=== PATIENT | male | born 1940 | race Caucasian/White ===

== ENCOUNTER 2018-10-21 11:38 | Observation (INO) | payer BC, MEDICARE ==
[2018-10-21] MEDS ORDERED: ASPIRIN 81 MG PO STA (12:09)
[2018-10-21 12:43] LABS: Basophils % (A) 0 %; Eosinophils # (A) 0.2 k/uL (0-0.7); Eosinophils % (A) 2 %; HCT 45.7 % (39.0-53.0); HGB 15.1 gm/dL (13.0-17.5); Lymphocytes # (A) 1.5 k/uL (1.0-4.8); Lymphocytes % (A) 19 %; MCH 28.6 pg (25.0-35.0); MCV 86.8 fL (80.0-100.0); Mean Platelet Volume 6.2; Monocytes # (A) 0.4 k/uL (0-1.0); Monocytes % (A) 5 %; Neutrophils # (A) 5.8 k/uL (1.3-7.7); Neutrophils % (A) 73 %; Platelet Count 308 k/uL (150-450); RBC 5.27 m/uL (4.30-5.90); WBC 7.9 k/uL (3.8-10.6)
[2018-10-21 12:55] LABS: Partial Thromboplastin Time 26.1 sec (22.0-30.0); Prothrombin Time 10.6 sec (9.0-12.0)
--- NOTE | 2018-10-21 12:55 | ED ---
General Adult HPI - General Source: patient, RN notes reviewed Mode of arrival: ambulatory Limitations: no limitations <Fernando Ramirez - Last Filed: 10/21/18 14:22> <Vlad Tran - Last Filed: 10/21/18 20:34> - General Chief complaint: Back Pain/Injury Stated complaint: Back pain Time Seen by Provider: 10/21/18 11:56 - History of Present Illness Initial comments: 78 year old male presents emergency Department with chief complaint of mid back pain. Patient states started a few weeks ago and has worsened. He states it's not exacerbated by anything at this time. Patient states the pain is primarily on the left side behind her shoulder blade. Patient denies trauma. Patient does have underlying hypertension has been started on medications. Patient is scheduled see a new internal medicine physician tomorrow Dr. Greco Patient states that the pain worsened today and cannot wait. He offers no complaints of shortness of breath. He has no history of hyperlipidemia, diabetes. Patient denies any current smoking. Patient denies any prior [place]. Patient denies any nausea, vomiting, diarrhea constipation. (Fernando Ramirez) - Related Data Home Medications Medication Instructions Recorded Confirmed Losartan Potassium 50 mg PO DAILY 10/21/18 10/21/18 Allergies Allergy/AdvReac Type Severity Reaction Status Date / Time No Known Allergies Allergy Verified 10/21/18 12:15 Review of Systems ROS Other: All systems not noted in ROS Statement are negative. <Fernando Ramirez - Last Filed: 10/21/18 14:22> ROS Other: All systems not noted in ROS Statement are negative. <Vlad Tran - Last Filed: 10/21/18 20:34> ROS Statement: Those systems with pertinent positive or pertinent negative responses have been documented in the HPI. Past Medical History Past Medical History: Hypertension History of Any Multi-Drug Resistant Organisms: None Reported Additional Past Surgical History / Comment(s): carpal tunnel surgery Past Psychological History: No Psychological Hx Reported Smoking Status: Never smoker Past Alcohol Use History: Occasional Past Drug Use History: None Reported <Fernando Ramirez - Last Filed: 10/21/18 14:22> - Past Family History Father Family Medical History: Cancer (Father at age of 81 from some sort of cancer.) Mother Family Medical History: Vascular Disorder (Mother at age of 89 from brain aneurysm.) Additional Family Medical History / Comment(s): brain aneurysm. Brother(s) Family Medical History: Cancer (Patient had 2 brothers one of them from lung cancer.) Sister(s) Family Medical History: No Reported History (Patient had 2 sisters one of them from alcoholism) Son(s) Family Medical History: No Reported History (Patient has 5 sons no major medical problems.) Daughter(s) Family Medical History: No Reported History (Patient has 3 daughters no major medical problems one of his daughter is a doctor in the [place].) <Vlad Tran N - Last Filed: 10/21/18 20:34> General Exam Limitations: no limitations General appearance: alert, in no apparent distress Head exam: Present: atraumatic, normocephalic, normal inspection Eye exam: Present: normal appearance, PERRL, EOMI. Absent: scleral icterus, conjunctival injection, periorbital swelling ENT exam: Present: normal exam, normal oropharynx, mucous membranes moist Neck exam: Present: normal inspection, full ROM. Absent: tenderness, meningismus, lymphadenopathy Respiratory exam: Present: normal lung sounds bilaterally. Absent: respiratory distress, wheezes, rales, rhonchi, stridor Cardiovascular Exam: Present: regular rate, normal rhythm, normal heart sounds. Absent: systolic murmur, diastolic murmur, rubs, gallop, clicks GI/Abdominal exam: Present: soft, normal bowel sounds. Absent: distended, tenderness, guarding, rebound, rigid Back exam: Present: normal inspection, full ROM. Absent: tenderness, paraspinal tenderness, vertebral tenderness Neurological exam: Present: alert, oriented X3, CN II-XII intact Skin exam: Present: warm, dry, intact, normal color. Absent: rash <Fernando Ramirez M - Last Filed: 10/21/18 14:22> Vital Signs 10/21/18 10/21/18 11:45 14:48 Temperature 98.3 F 98.7 F Pulse Rate 80 63 Respiratory 18 18 Rate Blood Pressure 167/80 149/90 O2 Sat by Pulse 97 99 Oximetry EKG Findings - EKG Comments: EKG Findings:: EKG performed at 13:30 sinus bradycardia with left axis deviation rate of 59 HI 160 QRS 98 QT/QTC 402/397 <Fernando Ramirez - Last Filed: 10/21/18 14:22> Medical Decision Making - Lab Data Result diagrams: 10/21/18 12:28 10/21/18 12:28 <Fernando Ramirez - Last Filed: 10/21/18 14:22> - Lab Data Result diagrams: 10/21/18 12:28 10/21/18 12:28 <Vlad Tran - Last Filed: 10/21/18 20:34> - Medical Decision Making 78-year-old male presented from for left-sided back, scapular pain is slightly worse with exertion. Patiently admitted for anginal equivalent. Patient had negative workup including PE study of the chest chest x-ray unremarkable. Patient will be admitted with cardiology consult. (Fernando Ramirez) 78-year-old male with atraumatic left back pain. Patient is well-appearing with stable vitals. Pain seems to be worsened with ambulation and activity. Workup in the emergency Department is negative. Patient's history is concerning for anginal equivalent. Will be admitted for serial cardiac enzymes , telemetry, cardiac consultation, and echo. Case discussed with admitting physician. (Vlad Tran) - Lab Data Lab Results 10/21/18 10/21/18 10/21/18 Range/Units 12:28 12:28 12:28 WBC 7.9 (3.8-10.6) k/uL RBC 5.27 (4.30-5.90) m/uL Hgb 15.1 (13.0-17.5) gm/dL Hct 45.7 (39.0-53.0) % MCV 86.8 (80.0-100.0) fL MCH 28.6 (25.0-35.0) pg MCHC 33.0 (31.0-37.0) g/dL RDW 14.0 (11.5-15.5) % Plt Count 308 (150-450) k/uL Neutrophils % 73 % Lymphocytes % 19 % Monocytes % 5 % Eosinophils % 2 % Basophils % 0 % Neutrophils # 5.8 (1.3-7.7) k/uL Lymphocytes # 1.5 (1.0-4.8) k/uL Monocytes # 0.4 (0-1.0) k/uL Eosinophils # 0.2 (0-0.7) k/uL Basophils # 0.0 (0-0.2) k/uL PT (9.0-12.0) sec INR (<1.2) APTT (22.0-30.0) sec D-Dimer (<0.60) mg/L FEU Sodium 142 (137-145) mmol/L Potassium 4.6 (3.5-5.1) mmol/L Chloride 107 (98-107) mmol/L Carbon Dioxide 28 (22-30) mmol/L Anion Gap 7 mmol/L BUN 25 H (9-20) mg/dL Creatinine 0.81 (0.66-1.25) mg/dL Est GFR (CKD-EPI)AfAm >90 (>60 ml/min/1.73 sqM) Est GFR (CKD-EPI)NonAf 86 (>60 ml/min/1.73 sqM) Glucose 94 (74-99) mg/dL Calcium 9.6 (8.4-10.2) mg/dL Magnesium 1.9 (1.6-2.3) mg/dL Total Bilirubin 0.8 (0.2-1.3) mg/dL AST 29 (17-59) U/L ALT 32 (21-72) U/L Alkaline Phosphatase 50 (38-126) U/L Total Creatine Kinase 56 (55-170) U/L CK-MB (CK-2) 0.9 (0.0-2.4) ng/mL CK-MB (CK-2) Rel Index 1.6 Troponin I <0.012 (0.000-0.034) ng/mL NT-Pro-B Natriuret Pep pg/mL Total Protein 7.3 (6.3-8.2) g/dL Albumin 4.2 (3.5-5.0) g/dL Lipase 343 H (23-300) U/L 10/21/18 10/21/18 Range/Units 12:28 12:28 WBC (3.8-10.6) k/uL RBC (4.30-5.90) m/uL Hgb (13.0-17.5) gm/dL Hct (39.0-53.0) % MCV (80.0-100.0) fL MCH (25.0-35.0) pg MCHC (31.0-37.0) g/dL RDW (11.5-15.5) % Plt Count (150-450) k/uL Neutrophils % % Lymphocytes % % Monocytes % % Eosinophils % % Basophils % % Neutrophils # (1.3-7.7) k/uL Lymphocytes # (1.0-4.8) k/uL Monocytes # (0-1.0) k/uL Eosinophils # (0-0.7) k/uL Basophils # (0-0.2) k/uL PT 10.6 (9.0-12.0) sec INR 1.0 (<1.2) APTT 26.1 (22.0-30.0) sec D-Dimer 1.44 H (<0.60) mg/L FEU Sodium (137-145) mmol/L Potassium (3.5-5.1) mmol/L Chloride (98-107) mmol/L Carbon Dioxide (22-30) mmol/L Anion Gap mmol/L BUN (9-20) mg/dL Creatinine (0.66-1.25) mg/dL Est GFR (CKD-EPI)AfAm (>60 ml/min/1.73 sqM) Est GFR (CKD-EPI)NonAf (>60 ml/min/1.73 sqM) Glucose (74-99) mg/dL Calcium (8.4-10.2) mg/dL Magnesium (1.6-2.3) mg/dL Total Bilirubin (0.2-1.3) mg/dL AST (17-59) U/L ALT (21-72) U/L Alkaline Phosphatase (38-126) U/L Total Creatine Kinase (55-170) U/L CK-MB (CK-2) (0.0-2.4) ng/mL CK-MB (CK-2) Rel Index Troponin I (0.000-0.034) ng/mL NT-Pro-B Natriuret Pep 133 pg/mL Total Protein (6.3-8.2) g/dL Albumin (3.5-5.0) g/dL Lipase (23-300) U/L Disposition <Fernando Ramirez M - Last Filed: 10/21/18 14:22> <Vlad Tran - Last Filed: 10/21/18 20:34> Clinical Impression: Anginal equivalent Disposition: ADMITTED IP TO THIS [facility] Condition: Stable
[2018-10-21 12:58] LABS: ALT 32 U/L (21-72); AST 29 U/L (17-59); Albumin 4.2 g/dL (3.5-5.0); Alkaline Phosphatase 50 U/L (38-126); Anion Gap 7 mmol/L; Blood Urea Nitrogen 25 mg/dL (9-20); Calcium 9.6 mg/dL (8.4-10.2); Carbon Dioxide 28 mmol/L (22-30); Chloride 107 mmol/L (98-107); Glucose 94 mg/dL (74-99); Lipase 343 U/L (23-300); Magnesium 1.9 mg/dL (1.6-2.3); Potassium 4.6 mmol/L (3.5-5.1); Sodium 142 mmol/L (137-145); Total Bilirubin 0.8 mg/dL (0.2-1.3); Total Protein 7.3 g/dL (6.3-8.2)
[2018-10-21 12:59] LABS: D-Dimer 1.44 mg/L FEU (<0.60)
--- NOTE | 2018-10-21 13:03 | XR ---
EXAMINATION TYPE: XR chest 2V DATE OF EXAM: 10/21/2018 COMPARISON: NONE HISTORY: Shortness of breath TECHNIQUE: Frontal and lateral views of the chest are obtained. FINDINGS: Scattered senescent parenchymal changes noted. Hyperinflation compatible with COPD. No evidence for infiltrate. No evidence for atelectasis. Heart size is stable. Mediastinal structures are stable and grossly unremarkable. No evidence for hilar prominence. Degenerative changes dorsal spine. IMPRESSION: 1. No evidence for acute pulmonary disease.
[2018-10-21 13:06] LABS: Creatine Kinase 56 U/L (55-170)
[2018-10-21 13:20] LABS: Creatine Kinase MB 0.9 ng/mL (0.0-2.4); Troponin I <0.012 ng/mL (0.000-0.034)
--- NOTE | 2018-10-21 13:34 | CT ---
EXAMINATION TYPE: CT chest angio for PE DATE OF EXAM: 10/21/2018 COMPARISON: None HISTORY: Back pain and elevated d-dimer CT DLP: 275.7 mGycm CONTRAST: CT chest with contrast and 3D reconstruction with MIP imaging is performed with IV Contrast, patient injected with 100 mL of Isovue 370. Contrast-enhanced CT of the chest was performed through the course of the pulmonary arteries with ree g and mediastinal window settings submitted. 3D reconstruction with MIP imaging was also performed. PULMONARY ARTERIES: The pulmonary arteries and their major tributaries are patent. I do not see soni dence for sizable filling defect to suggest pulmonary embolic process. LUNGS: The lungs are clear and free of infiltrate. No evidence for atelectasis. Scattered emphysemato us changes noted. No pulmonary nodule or mass is detected. No pleural effusion. MEDIASTINUM: Thoracic aorta is of normal caliber,however, evaluation is limited given timing of the contrast bolus. If there is concern for thoracic aortic pathology consider RAN. Correlate clinicall y . The heart is not enlarged. No evidence for mediastinal mass. No mediastinal lymph nodes greater than 1cm. HILAR STRUCTURES: No evidence for mass. No hilar lymph nodes greater than 1 cm. UPPER ABDOMEN: No significant abnormality is seen. IMPRESSION: 1. No evidence for Pulmonary embolism at this time.
[2018-10-21] MEDS ORDERED: NITROGLYCERIN SL TABS 0.4 MG TAB SUBLINGUAL PRN (14:24)
[2018-10-21] MEDS ORDERED: PNEUMOCOCCAL VACC-PNEUMOVAX 23 25 MCG/0.5 ML VIAL IM ONE (15:05)
--- NOTE | 2018-10-21 16:45 | P.HPIM ---
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 Review of Systems Constitutional: Denies chills, Denies chronic headaches, Denies lethargy, Denies malaise, Denies weight gain Eyes: denies blurred vision Ears: deny: decreased hearing Ears, nose, mouth and throat: Denies dysphagia, Denies neck lump, Denies sore throat, Denies vertigo Cardiovascular: Denies chest pain, Denies decreased exercise tolerance, Denies dyspnea on exertion, Denies leg edema, Denies lightheadedness, Denies rapid heart beat, Denies shortness of breath, Denies syncope Respiratory: Denies congestion, Denies cough, Denies cough with sputum, Denies home oxygen, Denies sleep apnea, Denies snoring, Denies wheezing Gastrointestinal: Denies abdominal pain, Denies belching, Denies BRBPR, Denies heartburn, Denies loss of appetite, Denies melena, Denies nausea, Denies vomiting Genitourinary: Reports nocturia, Denies dysuria Musculoskeletal: Reports gait dysfunction, Reports myalgias Musculoskeletal: left: ankle pain, ankle stiffness, ankle swelling, absent: elbow pain, elbow stiffness, elbow swelling, foot pain, foot stiffness, foot swelling, hand pain, hand stiffness, hand swelling, hip pain, hip stiffness, hip swelling, knee pain, knee stiffness, knee swelling, shoulder pain, shoulder stiffness, shoulder swelling, wrist pain, wrist stiffness, wrist swelling Integumentary: Denies pruritus, Denies rash Neurological: Denies numbness, Denies weakness Psychiatric: Denies anxiety, Denies depression Endocrine: Denies fatigue, Denies weight change Past Medical History Past Medical History: Hyperlipidemia, Hypertension, Osteoarthritis (OA), Prostate Disorder History of Any Multi-Drug Resistant Organisms: None Reported Past Surgical History: Orthopedic Surgery Additional Past Surgical History / Comment(s): Left carpal tunnel surgery, left shoulder surgery, left ankle open reduction and internal fixation greater than 53 years ago. Colonoscopy about 5 years ago. Past Anesthesia/Blood Transfusion Reactions: No Reported Reaction Past Psychological History: No Psychological Hx Reported Smoking Status: Former smoker (She used to smoke about a pack every day he smoked for about 30 years quit 20 years ago he smoked between 22 and 52.) Past Alcohol Use History: Occasional Past Drug Use History: None Reported - Past Family History Father Family Medical History: Cancer (Father at age of 81 from some sort of cancer.) Mother Family Medical History: Vascular Disorder (Mother at age of 89 from brain aneurysm.) Additional Family Medical History / Comment(s): brain aneurysm. Brother(s) Family Medical History: Cancer (Patient had 2 brothers one of them from lung cancer.) Sister(s) Family Medical History: No Reported History (Patient had 2 sisters one of them from alcoholism) Son(s) Family Medical History: No Reported History (Patient has 5 sons no major medical problems.) Daughter(s) Family Medical History: No Reported History (Patient has 3 daughters no major medical problems one of his daughter is a doctor in the [email or web address].) Medications and Allergies Home Medications Medication Instructions Recorded Confirmed Type Losartan Potassium 50 mg PO DAILY 10/21/18 10/21/18 History Allergies Allergy/AdvReac Type Severity Reaction Status Date / Time No Known Allergies Allergy Verified 10/21/18 12:15 Physical Exam Vitals: Vital Signs Temp Pulse Pulse Resp BP BP Pulse Ox 10/21/18 15:01 98.2 F 60 18 183/89 98 10/21/18 14:48 98.7 F 63 18 149/90 99 10/21/18 11:45 98.3 F 80 18 167/80 97 Intake and Output 10/21/18 10/21/18 10/21/18 06:59 14:59 22:59 Other: Weight 76.204 kg - Constitutional General appearance: no acute distress - EENT Eyes: anicteric sclerae, EOMI, PERRLA, no ptosis, no scleral icterus, normal appearance ENT: hearing grossly normal, NA/AT, normal oropharynx, no thrush Ears: bilateral: normal - Neck Neck: no lymphadenopathy, normal ROM, no rigidity, no stridor Carotids: bilateral: upstroke normal - Respiratory Respiratory: bilateral: diminished, negative: dullness, rales, rhonchi, wheezing , prolonged expiration - Cardiovascular Heart sounds: normal: S1, S2 Abnormal Heart Sounds: systolic murmur, no rub, no S3 Gallop, no S4 Gallop, no click - Gastrointestinal General gastrointestinal: normal bowel sounds, soft, no splenomegaly, no tenderness, no umbilical hernia, no ventral hernia - Integumentary Integumentary: normal, normal turgor - Neurologic Neurologic: CNII-XII intact - Musculoskeletal Musculoskeletal: no gait normal, strength equal bilaterally - Psychiatric Psychiatric: A&O x's 3, appropriate affect, intact judgment & insight Results CBC & Chem 7: 10/21/18 12:28 10/21/18 12:28 Labs: Abnormal Lab Results - Last 24 Hours (Table) 10/21/18 10/21/18 Range/Units 12:28 12:28 D-Dimer 1.44 H (<0.60) mg/L FEU BUN 25 H (9-20) mg/dL Lipase 343 H (23-300) U/L Thrombosis Risk Factor Assmnt - DVT/VTE Prophylaxis DVT/VTE Prophylaxis: Pharmacologic Prophylaxis ordered, Mechanical Prophylaxis ordered - Choose All That Apply Each Risk Factor Represents 3 Points: Age 75 years or older Thrombosis Risk Factor Assessment Total Risk Factor Score: 3 Thrombosis Risk Factor Assessment Level: Moderate Risk Assessment and Plan Assessment: Assessment and plan: 1. Left-sided back pain likely musculoskeletal with a few risk factors for CAD including his age and gender hypertension and hyperlipidemia, patient will be admitted as an observation, echocardiogram will be done, continue aspirin 325 mg once every day, continue losartan 50 mg orally once every day, we will arrange for the patient to go for Lexiscan stress test tomorrow morning as the patient is not able to run a treadmill due to his left ORIF of the left ankle. 2. Hypertension and hypertensive cardio vascular disease. Continue patient on losartan 50 mg orally once every day. 3. Hyperlipidemia. Check lipid profile. 4. Osteoarthritis. Stable. 5. Possible COPD due to remote history of smoking. Stable. 6. Enlarged prostate. Stable. 7. DVT prophylaxis. Heparin 5000 units subcutaneously every 12 hours . 8. GI prophylaxis. Pepcid 20 mg orally once every day. 9. Full code. 10. Observation.
[2018-10-21 19:16] LABS: Creatine Kinase 59 U/L (55-170)
[2018-10-21 19:28] LABS: Troponin I <0.012 ng/mL (0.000-0.034)
[2018-10-21] MEDS: HEPARIN SODIUM,PORCINE 5,000 UNIT/ML 1 ML VIAL SQ SCH (23:24)
[2018-10-22 01:11] LABS: Creatine Kinase 53 U/L (55-170)
[2018-10-22 01:25] LABS: Creatine Kinase MB 0.8 ng/mL (0.0-2.4); Troponin I <0.012 ng/mL (0.000-0.034)
[2018-10-22 03:49] LABS: Cholesterol 188 mg/dL (<200); HDL Cholesterol 36 mg/dL (40-60); LDL Cholesterol,Calculated 130 mg/dL (0-99); Triglycerides 110 mg/dL (<150)
[2018-10-22 07:13] VITALS: RESP 18
[2018-10-22] MEDS ORDERED: LOSARTAN 50 MG TAB PO SCH (09:00)
[2018-10-22] MEDS ORDERED: ASPIRIN 325 MG TAB PO SCH (09:00)
[2018-10-22] MEDS: HEPARIN SODIUM,PORCINE 5,000 UNIT/ML 1 ML VIAL SQ SCH (09:25)
[2018-10-22] MEDS ORDERED: amLODIPine 5 MG TAB PO SCH (09:45)
[2018-10-22] MEDS ORDERED: ATORVASTATIN 20 MG TAB PO SCH (09:45)
[2018-10-22] MEDS ORDERED: DOBUTamine DRIP for NUC MED 500 MG in DEXTROSE/WATER 1 250ML.BAG IV ONE (10:25)
[2018-10-22] MEDS ORDERED: BACLOFEN 10 MG TAB PO PRN (10:54)
--- NOTE | 2018-10-22 11:55 | ECHOF ---
Referral Reason:chest pain MEASUREMENTS -------- HEIGHT: 188.0 cm WEIGHT: 76.2 kg BP: 128/68 RVIDd: 3.0 cm (< 3.3) IVSd: 1.0 cm (0.6 - 1.1) LVIDd: 4.3 cm (3.9 - 5.3) LVPWd: 1.4 cm (0.6 - 1.1) IVSs: 1.2 cm LVIDs: 3.1 cm LVPWs: 1.6 cm LA Diam: 3.8 cm (2.7 - 3.8) LAESV Index (A-L): 35.60 ml/m Ao Diam: 2.9 cm (2.0 - 3.7) AV Cusp: 1.9 cm (1.5 - 2.6) LA Diam: 3.0 cm (2.7 - 3.8) MV EXCURSION: 16.659 mm (> 18.000) MV EF SLOPE: 86 mm/s (70 - 150) EPSS: 0.2 cm MV E Christiano: 0.85 m/s MV DecT: 161 ms MV A Christiano: 0.83 m/s MV E/A Ratio: 1.03 RAP: 5.00 mmHg RVSP: 17.33 mmHg FINDINGS -------- Sinus rhythm. This was a technically good study. LV size, wall thickness and systolic function are normal, with an EF greater than 55%. The left jerry tricular size is normal. The right ventricle is normal in size. The left atrial size is normal. The right atrial size is normal. There is mild aortic valve sclerosis. There is no evidence of aortic regurgitation. Mild mitral annular calcification present. Mild mitral regurgitation is present. Mild tricuspid regurgitation present. There is no evidence of pulmonary hypertension. The right v entricular systolic pressure, as measured by Doppler, is 17.33mmHg. There is no pulmonic regurgitation present. The aortic root size is normal. There is no pericardial effusion. CONCLUSIONS -------- 1. LV size, wall thickness and systolic function are normal, with an EF greater than 55%. 2. The left ventricular size is normal. 3. The right ventricle is normal in size. 4. The left atrial size is normal. 5. The right atrial size is normal. 6. There is mild aortic valve sclerosis. 7. Mild mitral annular calcification present. 8. Mild mitral regurgitation is present. 9. Mild tricuspid regurgitation present. 10. There is no evidence of pulmonary hypertension. 11. The right ventricular systolic pressure, as measured by Doppler, is 17.33mmHg. 12. There is no pulmonic regurgitation present. 13. The aortic root size is normal. 14. There is no pericardial effusion. VEST FINISHER: Raya Bui RDCS
--- NOTE | 2018-10-22 12:04 | P.CRDCN ---
History of Present Illness History of present illness: This is a pleasant 78-year-old male past medical history significant for hypertension which was newly diagnosed approximately one month ago and he was started on losartan 50 mg daily. He denies history of coronary artery disease, dyslipidemi or diabetes mellitus. 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 We have been asked to see him in consultation for chest pain. He states he has been feeling a nagging dull pain in the left thoracic/flank region intermittently for the last week or so. This pain is not associated with shortness of breath, dizziness, nausea, vomiting, palpitations or diaphoresis. The pain is not reproducible on palpation and is not exacerbated by cough or deep breathing. He denies radiation to the chest, arms, neck or jaw. EKG reveals sinus mechanism with no acute ST or T-wave abnormalities with left axis deviation. Chest x-ray is negative for acute cardiopulmonary process. Evidence of hyperinflation suggestive of COPD. CTA chest negative for pulmonary embolism, thoracic aorta is normal and no evidence of mediastinal thickening. Laboratory data reviewed, WBC 7.9, hemoglobin 15.1, platelets 308, d-dimer 1.44 , sodium 142, potassium 4.6, magnesium 1.9, creatinine 0.81, cardiac enzymes negative 3, LDL 130, HDL 36 and lipase 343. Current cardiac medications include losartan 50 mg daily. At the time of my exam: CONSTITUTIONAL: Denies fever. Denies chills. EYES: Denies blurred vision. Denies vision changes. Denies eye pain. EARS, NOSE, MOUTH & THROAT: Denies headache. Denies sore throat. Denies ear pain. CARDIOVASCULAR: Denies chest pain. Denies shortness of breath. Denies orthopnea. Denies PND. Denies palpitations. RESPIRATORY: Denies cough. GASTROINTESTINAL: Denies abdominal pain. Denies diarrhea. Denies constipation. Denies nausea. Denies vomiting. MUSCULOSKELETAL: Denies myalgias. INTEGUMENTARY: Denies pruitis. Denies rash. NEUROLOGIC: Denies numbness. Denies tingling. Denies weakness. PSYCHIATRIC: Denies anxiety. Denies depression. ENDOCRINE: Denies fatigue. Denies weight change. Denies polydipsia. Denies polyurina. GENITOURINARY: Denies burning, hematuria or urgency with micturation. HEMATOLOGIC: Denies history of anemia. Denies bleeding. Blood pressure 153/68 heart rate 51 afebrile maintaining oxygen saturation on room air GENERAL: This is a 78-year-old male in no apparent distress at the time of my examination. HEENT: Head is atraumatic, normocephalic. Pupils are equal, round. Sclerae anicteric. Conjunctivae are clear. Mucous membranes of the mouth are moist. Neck is supple. There is no jugular venous distention. No carotid bruit is heard. LUNGS: Clear to auscultation no wheezes, rales or rhonchi. No chest wall tenderness is noted on palpation or with deep breathing. HEART: Regular rate and rhythm with systolic ejection murmur at the left sternal border, no rubs or gallops. S1 and S2 heard. ABDOMEN: Soft, nontender. Bowel sounds are heard. No organomegaly noted. EXTREMITIES: No evidence of peripheral edema and no calf tenderness noted. VASCULAR: Radial and dorsalis pedis pulses palpated, no evidence of clubbing. NEUROLOGIC: Patient is awake, alert and oriented x3. ASSESSMENT Thoracic pain on the left, atypical for angina Hypertension Dyslipidemia PLAN An acute coronary event has been ruled out with no EKG evidence of acute ischemia and negative cardiac enzymes. Perform dobutamine stress echocardiogram to assess for stress induced ischemia. Add on small dose of amlodipine for better blood pressure control. Recommend atorvastatin 40 mg daily for lowering of LDL cholesterol. If stress test is normal he is stable for discharge home, follow up in the office with Dr. Plummer in 2 weeks. Thank you kindly for this consultation. Nurse Practitioner note has been reviewed, I agree with a documented findings and plan of care. Patient was seen and examined. Past Medical History Past Medical History: Hyperlipidemia, Hypertension, Osteoarthritis (OA), Prostate Disorder History of Any Multi-Drug Resistant Organisms: None Reported Past Surgical History: Orthopedic Surgery Additional Past Surgical History / Comment(s): Left carpal tunnel surgery, left shoulder surgery, left ankle open reduction and internal fixation greater than 53 years ago. Colonoscopy about 5 years ago. Past Anesthesia/Blood Transfusion Reactions: No Reported Reaction Past Psychological History: No Psychological Hx Reported Smoking Status: Former smoker (She used to smoke about a pack every day he smoked for about 30 years quit 20 years ago he smoked between 22 and 52.) Past Alcohol Use History: Occasional Past Drug Use History: None Reported - Past Family History Father Family Medical History: Cancer (Father at age of 81 from some sort of cancer.) Mother Family Medical History: Vascular Disorder (Mother at age of 89 from brain aneurysm.) Additional Family Medical History / Comment(s): brain aneurysm. Brother(s) Family Medical History: Cancer (Patient had 2 brothers one of them from lung cancer.) Sister(s) Family Medical History: No Reported History (Patient had 2 sisters one of them from alcoholism) Son(s) Family Medical History: No Reported History (Patient has 5 sons no major medical problems.) Daughter(s) Family Medical History: No Reported History (Patient has 3 daughters no major medical problems one of his daughter is a doctor in the [place].) Medications and Allergies Home Medications Medication Instructions Recorded Confirmed Type Losartan Potassium 50 mg PO DAILY 10/21/18 10/21/18 History Allergies Allergy/AdvReac Type Severity Reaction Status Date / Time No Known Allergies Allergy Verified 10/21/18 12:15 Physical Exam Vitals: Vital Signs Temp Pulse Pulse Resp BP BP BP 10/22/18 07:12 98.3 F 51 L 18 153/68 10/22/18 04:00 97.5 F L 55 L 16 128/68 10/22/18 00:00 16 10/21/18 23:25 98.2 F 57 L 16 137/72 10/21/18 20:00 18 10/21/18 19:20 97.7 F 64 18 177/80 10/21/18 16:00 60 18 10/21/18 15:01 98.2 F 60 18 183/89 10/21/18 14:48 98.7 F 63 18 149/90 10/21/18 11:45 98.3 F 80 18 167/80 Pulse Ox 10/22/18 07:12 98 10/22/18 04:00 97 10/22/18 00:00 10/21/18 23:25 98 10/21/18 20:00 10/21/18 19:20 98 10/21/18 16:00 10/21/18 15:01 98 10/21/18 14:48 99 10/21/18 11:45 97 Intake and Output 10/21/18 10/22/18 10/22/18 22:59 06:59 14:59 Intake Total 240 Balance 240 Intake: Oral 240 Other: Voiding Method Toilet Toilet # Voids 1 1 Results 10/21/18 12:28 10/21/18 12:28 Cardiac Enzymes 10/21/18 10/21/18 10/21/18 Range/Units 12:28 12:28 18:40 AST 29 (17-59) U/L CK-MB (CK-2) 0.9 1.0 (0.0-2.4) ng/mL Troponin I <0.012 <0.012 (0.000-0.034) ng/mL 10/22/18 Range/Units 00:32 AST (17-59) U/L CK-MB (CK-2) 0.8 (0.0-2.4) ng/mL Troponin I <0.012 (0.000-0.034) ng/mL Coagulation 10/21/18 Range/Units 12:28 PT 10.6 (9.0-12.0) sec APTT 26.1 (22.0-30.0) sec Lipids 10/21/18 Range/Units 12:28 Triglycerides 110 (<150) mg/dL Cholesterol 188 (<200) mg/dL HDL Cholesterol 36 L (40-60) mg/dL CBC 10/21/18 Range/Units 12:28 WBC 7.9 (3.8-10.6) k/uL RBC 5.27 (4.30-5.90) m/uL Hgb 15.1 (13.0-17.5) gm/dL Hct 45.7 (39.0-53.0) % Plt Count 308 (150-450) k/uL Comprehensive Metabolic Panel 10/21/18 Range/Units 12:28 Sodium 142 (137-145) mmol/L Potassium 4.6 (3.5-5.1) mmol/L Chloride 107 (98-107) mmol/L Carbon Dioxide 28 (22-30) mmol/L BUN 25 H (9-20) mg/dL Creatinine 0.81 (0.66-1.25) mg/dL Glucose 94 (74-99) mg/dL Calcium 9.6 (8.4-10.2) mg/dL AST 29 (17-59) U/L ALT 32 (21-72) U/L Alkaline Phosphatase 50 (38-126) U/L Total Protein 7.3 (6.3-8.2) g/dL Albumin 4.2 (3.5-5.0) g/dL Current Medications Generic Name Dose Route Start Last Admin Trade Name Freq PRN Reason Stop Dose Admin Aspirin 325 mg 10/22/18 09:00 Aspirin PO DAILY [facility] Heparin Sodium (Porcine) 5,000 unit 10/22/18 00:00 10/21/18 23:24 Heparin SQ 5,000 unit Q8HR AVERY Administration Losartan Potassium 50 mg 10/22/18 09:00 Cozaar PO DAILY [facility] Nitroglycerin 0.4 mg 10/21/18 14:24 Nitrostat SUBLINGUAL Q5M PRN Chest Pain Intake and Output 10/21/18 10/22/18 10/22/18 22:59 06:59 14:59 Intake Total 240 Balance 240 Intake: Oral 240 Other: Voiding Method Toilet Toilet # Voids 1 1 10/21/18 12:28 10/21/18 12:28
[2018-10-22 12:05] VITALS: BP 161/82; PULSE 66; TEMP 97.4
--- NOTE | 2018-10-22 12:17 | P.DS ---
Providers Date of admission: 10/21/18 14:10 Expected date of discharge: 10/22/18 Attending physician: Abdulkadir Marino Consults: 10/21/18 14:24 Consult Physician Urgent Consulting Provider: Greyson Hong Consult Reason/Comments: chest pain Do you want consulting provider notified?: Yes Primary care physician: Chichi Mcdermott MD Hospital Course: This is a 78-year-old male one of Dr. 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 10/22: Repeat troponins have been negative on 3 draws. Cholesterol 188, LDL 130, HDL 36. Patient has been afebrile, pulse ox 98% on room air, heart rate running in the 50s, blood pressure 153/68. Echocardiogram reveals EF greater than 55%, mild aortic valve sclerosis, mild mitral regurgitation, mild tricuspid regurgitation, no pulmonary hypertension. The patient has been seen by cardiology and dobutamine stress test was ordered which came back negative and patient was cleared for discharge from cardiology with plan for follow-up with Dr. VC Plummer. Patient has been started on baclofen for pain and will be provided a prescription. Patient was started on amlodipine and Lipitor by cardiology which will also be provided in new prescriptions. Discharge diagnoses: 1. Left-sided back pain likely musculoskeletal 2. Hypertension and hypertensive cardi vascular disease. 3. Hyperlipidemia. 4. Osteoarthritis. Stable. 5. Possible COPD due to remote history of smoking. Stable. 6. Enlarged prostate. Stable. Discharge plan: Return home Impression and plan of care have been directed as dictated by the signing physician. Jordyn Pak nurse practitioner acting as scribe for signing physician. Patient Condition at Discharge: Good Plan - Discharge Summary Discharge Rx Participant: No New Discharge Prescriptions: New amLODIPine [Norvasc] 5 mg PO DAILY #30 tab Atorvastatin [Lipitor] 20 mg PO DAILY #30 tab Baclofen [Lioresal] 10 mg PO BID PRN #60 tab PRN Reason: Muscle Spasm Continue Losartan Potassium 50 mg PO DAILY Discharge Medication List Losartan Potassium 50 mg PO DAILY 10/21/18 [History] Atorvastatin [Lipitor] 20 mg PO DAILY #30 tab 10/22/18 [Rx] Baclofen [Lioresal] 10 mg PO BID PRN #60 tab 10/22/18 [Rx] amLODIPine [Norvasc] 5 mg PO DAILY #30 tab 10/22/18 [Rx] Follow up Appointment(s)/Referral(s): Lupe Plummer MD [STAFF PHYSICIAN] - 2 Weeks Chichi Mcdermott MD [Primary Care Provider] - 1 Week Discharge Disposition: HOME SELF-CARE
[2018-10-22] MEDS ORDERED: PNEUMOCOCCAL VACC-PNEUMOVAX 23 25 MCG/0.5 ML VIAL IM ONE (12:38)
--- NOTE | 2018-10-22 12:39 | ECHOS ---
STRESS ECHOCARDIOGRAM INDICATIONS: Chest pain. BASELINE HEART RATE: 58 BASELINE BLOOD PRESSURE: 139/56 MAXIMUM HEART RATE: 130 MAXIMUM BLOOD PRESSURE: 185/52 85% MPHR: 122 100% MPHR: 144 MAXIMUM STAGE REACHED: 3 TOTAL EXERCISE TIME: 7:00 CLINICAL INFORMATION: A dobutamine stress echocardiographic study was performed. Peak heart rate of 130 was achieved. Maximum blood pressure of 185/52 mmHg is noted. The resting EKG shows normal sinus rhythm with normal NJ interval and QRS duration and normal ST-T waves. No ST-segment depression suggestive of ischemia is noted. The baseline echocardiographic images reveals normal left ventricular chamber size with normal left ventricular systolic function. At the peak dose of dobutamine infusion, normal increase in the wall thickness and contractility is noted. FINAL IMPRESSION: This dobutamine stress echocardiographic study is negative for stress-induced ischemia. EKG portion of the stress test is not suggestive of ischemia. Patient did not complain of any chest pain during the test. MMODL / IJN: [id number] /
== END 2018-10-22 14:00 | disposition home or self-care (01) ==
LOC: EC 11:38 → 1SOBS 14:10
PROVIDERS: ADMIT Internal Medicine; ATTEND Internal Medicine
DX: M54.89 Other dorsalgia (principal); I11.9 Hypertensive heart disease without heart failure; E78.5 Hyperlipidemia, unspecified; M19.90 Unspecified osteoarthritis, unspecified site; N40.0 Benign prostatic hyperplasia without lower urinary tract symptoms; Z87.891 Personal history of nicotine dependence; Z79.899 Other long term (current) drug therapy; Z80.9 Family history of malignant neoplasm, unspecified; Z82.49 Family history of ischemic heart disease and other diseases of the circulatory system; Z80.1 Family history of malignant neoplasm of trachea, bronchus and lung
CPT/HCPCS: 93005 ×2; 96372 ×2; 99285; 36415; 93306; 93351; 85379; 83880; 80061; 80053; 82550 ×2; 82553 ×2; 83690 ×2; 83735; 84484 ×2; 85025; 85610; 85730; 71046; 71275; 90732; G0378; G0009; J1250; J1644 ×2; Q9967

== ENCOUNTER 2019-08-17 11:29 | Emergency (ER) | payer MEDICARE ==
[2019-08-17 11:44] VITALS: BP 172/80; PULSE 61; RESP 18; TEMP 98.1
--- NOTE | 2019-08-17 11:59 | ED ---
GI Bleed HPI - General Source: patient, RN notes reviewed Mode of arrival: ambulatory Limitations: no limitations <Fernando Ramirez - Last Filed: 08/17/19 12:15> <Vlad Hall - Last Filed: 08/17/19 13:29> - General Chief complaint: GI Bleed Stated complaint: RECTAL BLEEDING Time Seen by Provider: 08/17/19 11:45 - History of Present Illness Initial comments: 79-year-old male presents emergency Department with chief complaint of rectal bleeding. Patient states that he had a bowel movement today. Patient states that shortly after he had a bowel movement in felt some wetness and denies that was blood. He has no associated pain. He does have a history of hemorrhoids. Patient states he suffered picture to his daughter who told him it was hemorrhoid. Patient presented with no active complaints has been on a blood thinners. No nausea vomiting diarrhea constipation. (Fernando Ramirez) - Related Data Home Medications Medication Instructions Recorded Confirmed Losartan Potassium 50 mg PO DAILY 10/21/18 10/21/18 Previous Rx's Medication Instructions Recorded Atorvastatin [Lipitor] 20 mg PO DAILY #30 tab 10/22/18 Baclofen [Lioresal] 10 mg PO BID PRN #60 tab 10/22/18 amLODIPine [Norvasc] 5 mg PO DAILY #30 tab 10/22/18 Hydrocortisone Pr Cream 1 applic RECTAL TID #30 gram 08/17/19 [Proctosol-Hc 2.5%] Allergies Allergy/AdvReac Type Severity Reaction Status Date / Time No Known Allergies Allergy Verified 08/17/19 11:37 Review of Systems ROS Other: All systems not noted in ROS Statement are negative. <Fernando Ramirez - Last Filed: 08/17/19 12:15> ROS Other: All systems not noted in ROS Statement are negative. <Vlad Hall - Last Filed: 08/17/19 13:29> ROS Statement: Those systems with pertinent positive or pertinent negative responses have been documented in the HPI. Past Medical History Past Medical History: Hyperlipidemia, Hypertension, Osteoarthritis (OA), Prostate Disorder History of Any Multi-Drug Resistant Organisms: None Reported Past Surgical History: Orthopedic Surgery Additional Past Surgical History / Comment(s): Left carpal tunnel surgery, left shoulder surgery, left ankle open reduction and internal fixation greater than 53 years ago. Colonoscopy about 5 years ago. Past Anesthesia/Blood Transfusion Reactions: No Reported Reaction Past Psychological History: No Psychological Hx Reported Smoking Status: Former smoker Past Alcohol Use History: Occasional Past Drug Use History: None Reported - Past Family History Father Family Medical History: Cancer (Father at age of 81 from some sort of cancer.) Mother Family Medical History: Vascular Disorder (Mother at age of 89 from brain aneurysm.) Additional Family Medical History / Comment(s): brain aneurysm. Brother(s) Family Medical History: Cancer (Patient had 2 brothers one of them from lung cancer.) Sister(s) Family Medical History: No Reported History (Patient had 2 sisters one of them from alcoholism) Son(s) Family Medical History: No Reported History (Patient has 5 sons no major medical problems.) Daughter(s) Family Medical History: No Reported History (Patient has 3 daughters no major medical problems one of his daughter is a doctor in the [place].) <Fernando Ramirez - Last Filed: 08/17/19 12:15> General Exam Limitations: no limitations General appearance: alert, in no apparent distress Head exam: Present: atraumatic, normocephalic, normal inspection Eye exam: Present: normal appearance, PERRL, EOMI. Absent: scleral icterus, conjunctival injection, periorbital swelling Respiratory exam: Present: normal lung sounds bilaterally. Absent: respiratory distress, wheezes, rales, rhonchi, stridor Cardiovascular Exam: Present: regular rate, normal rhythm, normal heart sounds. Absent: systolic murmur, diastolic murmur, rubs, gallop, clicks GI/Abdominal exam: Present: soft, normal bowel sounds. Absent: distended, tenderness, guarding, rebound, rigid Rectal exam: Present: hemorrhoids (There is blood noted no active bleeding no). Absent: tenderness <Fernando Ramirez - Last Filed: 08/17/19 12:15> Course <Vlad Hall - Last Filed: 08/17/19 13:29> Vital Signs 08/17/19 11:41 Temperature 98.1 F Pulse Rate 61 Respiratory 18 Rate Blood Pressure 172/80 O2 Sat by Pulse 99 Oximetry - Reevaluation(s) Reevaluation #1: 08/17/19 13:28 PA supervision: I proceeded [id number] evaluation patient did discuss findings with him and his . Patient presented with complaints of some GI bleeding this well of bright red blood. He does have a hemorrhoid which was evaluated by my physician grants and contracts assistant. I did review the imaging that was provided by the patient's is consistent with a acute bleeding hemorrhoid with no active bleeding at this time. He will be treated appropriately I do agree with the assessment and plan. (Vlad Hall) Disposition Is patient prescribed a controlled substance at d/c from ED?: No Time of Disposition: 11:59 <Fernando Ramirez - Last Filed: 08/17/19 12:15> <Vlad Hall - Last Filed: 08/17/19 13:29> Clinical Impression: External thrombosed hemorrhoids, External hemorrhoid, bleeding Disposition: HOME SELF-CARE Condition: Stable Instructions (If sedation given, give patient instructions): Thrombosed Hemorrhoid (ED) Additional Instructions: Use [id number] Tucks pads. Please return to the Emergency Department if symptoms worsen or any other concerns. Prescriptions: Hydrocortisone Pr Cream [Proctosol-Hc 2.5%] 1 applic RECTAL TID #30 gram Referrals: Chichi Mcdermott MD [Primary Care Provider] - 1-2 days
== END 2019-08-17 12:14 | disposition home or self-care (01) ==
LOC: EC 11:29
DX: K64.5 Perianal venous thrombosis (principal); I10 Essential (primary) hypertension; Z87.891 Personal history of nicotine dependence; Z79.899 Other long term (current) drug therapy
CPT/HCPCS: 99283

== ENCOUNTER 2020-02-16 01:28 | Inpatient (IN) | payer MEDICARE ==
[2020-02-16] MEDS ORDERED: SODIUM CHLORIDE 0.9% 1,000 ML IV STA (01:38)
--- NOTE | 2020-02-16 01:39 | ED ---
Weakness HPI - General Stated complaint: poss CVA Time Seen by Provider: 02/16/20 01:29 Source: RN notes reviewed, old records reviewed Limitations: altered mental status - History of Present Illness Initial comments: This is a 79-year-old male DF for evaluation patient has history of high blood pressure. Patient is presenting Social coming in for mental status. Patient had an episode of screaming while sleeping the went to the patient was unresponsive EMS states patient was unresponsive when they arrived at his house. Patient has no recent trauma no fevers. MD Complaint: generalized weakness (Episode of unresponsiveness) -: minutes(s) Location: generalized (Unresponsiveness), other (Altered mental status) Severity: mild Severity scale (1-10): 3 Quality: other (complaints) Consistency: now resolved Improves with: none Worsens with: none Context: history of similar Associated Symptoms: confusion - Related Data Home Medications Medication Instructions Recorded Confirmed Mesalamine 4.8 gm PO DAILY 02/16/20 02/17/20 predniSONE See Taper PO DAILY 02/16/20 02/17/20 Previous Rx's Medication Instructions Recorded Aspirin 325 mg PO DAILY tab 02/18/20 Atorvastatin [Lipitor] 20 mg PO HS #30 tab 02/18/20 Hydrochlorothiazide 25 mg PO DAILY #0 02/18/20 Allergies Allergy/AdvReac Type Severity Reaction Status Date / Time No Known Allergies Allergy Verified 02/16/20 10:14 Review of Systems ROS Statement: Those systems with pertinent positive or pertinent negative responses have been documented in the HPI. ROS Other: All systems not noted in ROS Statement are negative. Past Medical History Past Medical History: Hyperlipidemia, Hypertension, Osteoarthritis (OA), Prostate Disorder History of Any Multi-Drug Resistant Organisms: None Reported Past Surgical History: Orthopedic Surgery Additional Past Surgical History / Comment(s): Left carpal tunnel surgery, left shoulder surgery, left ankle open reduction and internal fixation greater than 53 years ago. Colonoscopy about 5 years ago. Past Anesthesia/Blood Transfusion Reactions: No Reported Reaction Past Psychological History: No Psychological Hx Reported Smoking Status: Former smoker Past Alcohol Use History: Occasional Past Drug Use History: None Reported - Past Family History Father Family Medical History: Cancer (Father at age of 81 from some sort of cancer.) Mother Family Medical History: Vascular Disorder (Mother at age of 89 from brain aneurysm.) Additional Family Medical History / Comment(s): brain aneurysm. Brother(s) Family Medical History: Cancer (Patient had 2 brothers one of them from lung cancer.) Sister(s) Family Medical History: No Reported History (Patient had 2 sisters one of them from alcoholism) Son(s) Family Medical History: No Reported History (Patient has 5 sons no major medical problems.) Daughter(s) Family Medical History: No Reported History (Patient has 3 daughters no major medical problems one of his daughter is a doctor in the [place].) General Exam - General Exam Comments Initial Comments: NIH of 0 General appearance: alert, in no apparent distress Head exam: Present: atraumatic, normocephalic, normal inspection Eye exam: Present: normal appearance, PERRL, EOMI. Absent: scleral icterus, conjunctival injection, periorbital swelling ENT exam: Present: normal exam, mucous membranes moist Neck exam: Present: normal inspection. Absent: tenderness, meningismus, lymphadenopathy Respiratory exam: Present: normal lung sounds bilaterally. Absent: respiratory distress, wheezes, rales, rhonchi, stridor Cardiovascular Exam: Present: regular rate, normal rhythm, normal heart sounds. Absent: systolic murmur, diastolic murmur, rubs, gallop, clicks GI/Abdominal exam: Present: soft, normal bowel sounds. Absent: distended, tenderness, guarding, rebound, rigid Extremities exam: Present: normal inspection, full ROM, normal capillary refill. Absent: tenderness, pedal edema, joint swelling, calf tenderness Back exam: Present: normal inspection Neurological exam: Present: alert, oriented X3, CN II-XII intact Psychiatric exam: Present: normal affect, normal mood Skin exam: Present: warm, dry, intact, normal color. Absent: rash Course Vital Signs 02/16/20 02/16/20 02/16/20 01:34 02:17 03:00 Temperature 98.0 F Pulse Rate 81 75 67 Pulse Rate [ Left] Respiratory 16 16 16 Rate Blood Pressure 186/95 155/84 162/80 Blood Pressure [Left Arm] O2 Sat by Pulse 96 97 97 Oximetry 02/16/20 02/16/20 03:37 04:00 Temperature 98.1 F 98.1 F Pulse Rate 60 Pulse Rate [ 70 Left] Respiratory 16 16 Rate Blood Pressure 137/82 Blood Pressure 155/60 [Left Arm] O2 Sat by Pulse 96 97 Oximetry - Reevaluation(s) Reevaluation #1: Medical record is reviewed Patient has resolution of symptoms does not feel comfortable with discharge - Consultations Consultation #1: spoke w Dr Mcmahon and ok for admission EKG Findings - EKG Comments: EKG Findings:: EKG is sinus rhythm of 74, VT 1:30, QRS 90, QTc 421 Medical Decision Making - Medical Decision Making 79 male seen and evaluated for possible CVA had an episode of screaming not acting appropriately per the and became unresponsive is Rh+ per EMS symptoms resolved here. Patient be admitted for observation regarding possible neurological deficit or insult, seizure - Lab Data Result diagrams: 02/17/20 05:31 02/17/20 05:31 Lab Results 02/16/20 02/16/20 02/16/20 Range/Units 01:42 01:43 01:43 WBC 9.5 (3.8-10.6) k/uL RBC 5.30 (4.30-5.90) m/uL Hgb 14.3 (13.0-17.5) gm/dL Hct 45.5 (39.0-53.0) % MCV 86.0 (80.0-100.0) fL MCH 27.0 (25.0-35.0) pg MCHC 31.4 (31.0-37.0) g/dL RDW 14.7 (11.5-15.5) % Plt Count 413 (150-450) k/uL Neutrophils % 57 % Lymphocytes % 36 % Monocytes % 5 % Eosinophils % 0 % Basophils % 0 % Neutrophils # 5.5 (1.3-7.7) k/uL Lymphocytes # 3.4 (1.0-4.8) k/uL Monocytes # 0.5 (0-1.0) k/uL Eosinophils # 0.0 (0-0.7) k/uL Basophils # 0.0 (0-0.2) k/uL PT 10.7 (9.0-12.0) sec INR 1.0 (<1.2) APTT 21.0 L (22.0-30.0) sec Sodium (137-145) mmol/L Potassium (3.5-5.1) mmol/L Chloride (98-107) mmol/L Carbon Dioxide (22-30) mmol/L Anion Gap mmol/L BUN (9-20) mg/dL Creatinine (0.66-1.25) mg/dL Est GFR (CKD-EPI)AfAm (>60 ml/min/1.73 sqM) Est GFR (CKD-EPI)NonAf (>60 ml/min/1.73 sqM) Glucose (74-99) mg/dL POC Glucose (mg/dL) 114 H (75-99) mg/dL POC Glu Intake Manager Susan Villagomez Lactic Ac Sepsis Rflx Plasma Lactic Acid Mkihail (0.7-2.0) mmol/L Calcium (8.4-10.2) mg/dL Phosphorus (2.5-4.5) mg/dL Magnesium (1.6-2.3) mg/dL Total Bilirubin (0.2-1.3) mg/dL AST (17-59) U/L ALT (4-49) U/L Alkaline Phosphatase (38-126) U/L Creatine Kinase (55-170) U/L Troponin I (0.000-0.034) ng/mL Total Protein (6.3-8.2) g/dL Albumin (3.5-5.0) g/dL 02/16/20 02/16/20 02/16/20 Range/Units 01:43 01:43 01:43 WBC (3.8-10.6) k/uL RBC (4.30-5.90) m/uL Hgb (13.0-17.5) gm/dL Hct (39.0-53.0) % MCV (80.0-100.0) fL MCH (25.0-35.0) pg MCHC (31.0-37.0) g/dL RDW (11.5-15.5) % Plt Count (150-450) k/uL Neutrophils % % Lymphocytes % % Monocytes % % Eosinophils % % Basophils % % Neutrophils # (1.3-7.7) k/uL Lymphocytes # (1.0-4.8) k/uL Monocytes # (0-1.0) k/uL Eosinophils # (0-0.7) k/uL Basophils # (0-0.2) k/uL PT (9.0-12.0) sec INR (<1.2) APTT (22.0-30.0) sec Sodium 130 L (137-145) mmol/L Potassium 4.8 (3.5-5.1) mmol/L Chloride 97 L (98-107) mmol/L Carbon Dioxide 23 (22-30) mmol/L Anion Gap 10 mmol/L BUN 14 (9-20) mg/dL Creatinine 0.85 (0.66-1.25) mg/dL Est GFR (CKD-EPI)AfAm >90 (>60 ml/min/1.73 sqM) Est GFR (CKD-EPI)NonAf 84 (>60 ml/min/1.73 sqM) Glucose 117 H (74-99) mg/dL POC Glucose (mg/dL) (75-99) mg/dL POC Glu Intake Manager ID Lactic Ac Sepsis Rflx Plasma Lactic Acid Mikhail 4.3 H* (0.7-2.0) mmol/L Calcium 9.1 (8.4-10.2) mg/dL Phosphorus 3.1 (2.5-4.5) mg/dL Magnesium 2.2 (1.6-2.3) mg/dL Total Bilirubin 0.4 (0.2-1.3) mg/dL AST 17 (17-59) U/L ALT 20 (4-49) U/L Alkaline Phosphatase 61 (38-126) U/L Creatine Kinase <20 L (55-170) U/L Troponin I 0.016 (0.000-0.034) ng/mL Total Protein 6.8 (6.3-8.2) g/dL Albumin 3.6 (3.5-5.0) g/dL 02/16/20 Range/Units 02:43 WBC (3.8-10.6) k/uL RBC (4.30-5.90) m/uL Hgb (13.0-17.5) gm/dL Hct (39.0-53.0) % MCV (80.0-100.0) fL MCH (25.0-35.0) pg MCHC (31.0-37.0) g/dL RDW (11.5-15.5) % Plt Count (150-450) k/uL Neutrophils % % Lymphocytes % % Monocytes % % Eosinophils % % Basophils % % Neutrophils # (1.3-7.7) k/uL Lymphocytes # (1.0-4.8) k/uL Monocytes # (0-1.0) k/uL Eosinophils # (0-0.7) k/uL Basophils # (0-0.2) k/uL PT (9.0-12.0) sec INR (<1.2) APTT (22.0-30.0) sec Sodium (137-145) mmol/L Potassium (3.5-5.1) mmol/L Chloride (98-107) mmol/L Carbon Dioxide (22-30) mmol/L Anion Gap mmol/L BUN (9-20) mg/dL Creatinine (0.66-1.25) mg/dL Est GFR (CKD-EPI)AfAm (>60 ml/min/1.73 sqM) Est GFR (CKD-EPI)NonAf (>60 ml/min/1.73 sqM) Glucose (74-99) mg/dL POC Glucose (mg/dL) (75-99) mg/dL POC Glu Intake Manager ID Lactic Ac Sepsis Rflx Y Plasma Lactic Acid Mikhail (0.7-2.0) mmol/L Calcium (8.4-10.2) mg/dL Phosphorus (2.5-4.5) mg/dL Magnesium (1.6-2.3) mg/dL Total Bilirubin (0.2-1.3) mg/dL AST (17-59) U/L ALT (4-49) U/L Alkaline Phosphatase (38-126) U/L Creatine Kinase (55-170) U/L Troponin I (0.000-0.034) ng/mL Total Protein (6.3-8.2) g/dL Albumin (3.5-5.0) g/dL - Radiology Data Radiology results: report reviewed (CT brain chest x-ray negative for acute disease), image reviewed Disposition Clinical Impression: Syncope, Transient cerebral ischemia, Weakness, Dehydration Disposition: ADMITTED IP TO THIS [facility] Condition: Good Is patient prescribed a controlled substance at d/c from ED?: No
[2020-02-16 01:47] LABS: Glucose,Whole Blood 114 mg/dL (75-99)
[2020-02-16 02:20] LABS: Basophils % (A) 0 %; Eosinophils % (A) 0 %; HCT 45.5 % (39.0-53.0); HGB 14.3 gm/dL (13.0-17.5); Lymphocytes # (A) 3.4 k/uL (1.0-4.8); Lymphocytes % (A) 36 %; MCHC 31.4 g/dL (31.0-37.0); Monocytes # (A) 0.5 k/uL (0-1.0); Monocytes % (A) 5 %; Neutrophils # (A) 5.5 k/uL (1.3-7.7); Neutrophils % (A) 57 %; Platelet Count 413 k/uL (150-450); RDW 14.7 % (11.5-15.5); WBC 9.5 k/uL (3.8-10.6)
[2020-02-16 02:24] LABS: Prothrombin Time 10.7 sec (9.0-12.0)
[2020-02-16 02:26] LABS: ALT 20 U/L (4-49); AST 17 U/L (17-59); African American GFR (CKD) >90 (>60 ml/min/1.73 sqM); Albumin 3.6 g/dL (3.5-5.0); Alkaline Phosphatase 61 U/L (38-126); Anion Gap 10 mmol/L; Blood Urea Nitrogen 14 mg/dL (9-20); Calcium 9.1 mg/dL (8.4-10.2); Carbon Dioxide 23 mmol/L (22-30); Chloride 97 mmol/L (98-107); Creatine Kinase <20 U/L (55-170); Glucose 117 mg/dL (74-99); Magnesium 2.2 mg/dL (1.6-2.3); Non-African American GFR(CKD) 84 (>60 ml/min/1.73 sqM); Phosphorus 3.1 mg/dL (2.5-4.5); Potassium 4.8 mmol/L (3.5-5.1); Sodium 130 mmol/L (137-145); Total Bilirubin 0.4 mg/dL (0.2-1.3); Total Protein 6.8 g/dL (6.3-8.2)
--- NOTE | 2020-02-16 02:29 | CT ---
EXAMINATION TYPE: CT brain wo con DATE OF EXAM: 02/16/2020 COMPARISON: None HISTORY: Weakness CT DLP: 1103.4 mGycm Automated exposure control for dose reduction was used. There is some cerebral cortical atrophy. There is no mass effect nor midline shift. There is no sign of intracranial hemorrhage. The calvarium is intact. Skull base is intact. IMPRESSION: Cerebral atrophy. No acute intracranial abnormality.
[2020-02-16] MEDS ORDERED: ASPIRIN 81 MG PO STA (02:53)
[2020-02-16] MEDS ORDERED: NITROGLYCERIN SL TABS 0.4 MG TAB SUBLINGUAL PRN (02:53)
[2020-02-16] MEDS: SODIUM CHLORIDE 0.9% 1,000 ML IV SCH ×3 (03:06→21:47)
[2020-02-16 03:12] LABS: Appearance,Urine Clear (Clear); Bilirubin,Urine Negative (Negative); Blood,Urine Negative (Negative); Color,Urine Light Yellow; Glucose,Urine (UA) Negative (Negative); Ketones,Urine Negative (Negative); Leukocyte Esterase,Urine Negative (Negative); Nitrite,Urine Negative (Negative); Protein,Urine Negative (Negative); Specific Gravity,Urine 1.006 (1.001-1.035); Urobilinogen,Urine <2.0 mg/dL (<2.0)
--- NOTE | 2020-02-16 04:00 | XR ---
EXAMINATION TYPE: XR chest 2V DATE OF EXAM: 02/16/2020 COMPARISON: 10/21/2018 HISTORY: Chest pain Findings Heart is normal. Lungs are clear of consolidation. There are no hilar masses. Costophrenic angles ar e clear. There are chest leads. There is a screw at the left coracoclavicular joint. There is spurrin g in the thoracic spine. IMPRESSION: No active cardiopulmonary disease. No change.
--- NOTE | 2020-02-16 12:28 | CT ---
EXAMINATION TYPE: CT angio head neck DATE OF EXAM: 02/16/2020 HISTORY: TIA, weakness COMPARISON: CT brain dated 02/16/2020 CT DLP: 428.9 mGycm. Automated Exposure Control for Dose Reduction was Utilized. TECHNIQUE: CTA scan of the neck is performed without and with IV Contrast, patient injected with 65 ml mL of Isovue 370, axial images are obtained, coronal and sagittal reformatted images are reviewed. Three-D reconstructed images are created on an independent workstation and reviewed. FINDINGS: Carotid/Vascular Structures: There is a conventional three-vessel branch pattern of the aortic arch. Mild nonspecific atherosclerosis that is not hemodynamically significant on the right common carotid artery seen. Minimal calcific and noncalcific atherosclerosis of the right carotid bulb. Cervical por tion of the right internal carotid artery is unremarkable. On the left there is a short segment steno sis of the carotid bulb measuring a distance of 5 mm. Stenosis is just less than 70%. Remaining cervi pratik portion of the left internal carotid artery is unremarkable. The left vertebral artery is occluded from its origin to the foramen magnum. There is some flow withi n the distal left vertebral artery although there is diminutive caliber. Flow is likely retrograde fr om the right patent vertebral artery. No proximal stenosis of the left subclavian artery seen. Atherosclerosis is seen of the cavernous and supraclinoid portions of the internal carotid arteries. 2 mm saccular aneurysm is noted of the left M1 segment on image 24. Entirety of the right posterior c erebral artery is difficult to visualize on raw data however does appear patent on 3-D imaging. Other: Moderate to severe multilevel degenerative disc disease identified. Moderate centrilobular emp hysematous changes of the visualized lungs. IMPRESSION: 1. Complete occlusion of the left vertebral artery. 2. 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 3. Right posterior cerebral artery is not well visualized on raw images however appears patent on 3-D reformats. 4. Short segment stenosis of the left carotid bulb nearing 70%. A [place] critical message alert has been initiated for Leydi Lemon MD via the [employer] Critical Results System on 02/16/2020 12:26 PM. This message alert has been sent to Leydi Lemon MD via the preferences provided by the clinician for the receipt of Radiology Critical Findings. Vino Volo age ID [id number].
--- NOTE | 2020-02-16 13:36 | P.HPIM ---
History of Present Illness H&P Date: 02/16/20 This is a 79-year-old male one of Dr. Mcdermott with a previous medical history significant for hypertension and hypertensive cardiovascular disease, hyperlipidemia, ulcerative colitis who was recently started on prednisone 7 days ago are using 60 mg oral prednisone with half a tablet tapering dose per week, also on on high EKG fiber diet for cleansing, and is on his feet 4. Patient was noticed by the to be delirious, we'll while he was sleeping, the got concerned as the patient is not making any sense, patient thereafter was admitted to the hospital for possible TIA, weakness, and syncope. Patient cannot relate to any syncopal episodes, patient was sleeping at this time, however he is making noises and reaching out in his sleep. Patient came in by ambulance, history comes from the patient. Patient denies any dysarthria or dysphagia motor deficits in upper extremity or lower extremity, no dizziness no diplopia, patient does not have any chest pain or palpitations no difficulty of breathing, and no dyspnea on exertion. No chest pain on exertion. Emergency room, CAT scan of the brain shows cerebral atrophy noted with no acute intracranial abnormality, EKG normal sinus rhythm with left anterior fascicular block troponin was 0.016 and 0.04, consult were made with cardiology, echocardiogram was requested, urinalysis is negative, lactic acid was elevated on admission, patient required fluid for hydration. Early this morning, patient was short of breath, IV Lasix was given for suspected volume overload, and was better on our rounds this morning. 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 Consult with cardiology was made as well as vascular surgery, neurology Review of Systems Constitutional: Reports as per HPI, Denies anorexia, Denies chills, Denies chronic headaches, Denies chronic pain, Denies daytime sleepiness, Denies fatigue, Denies fever, Denies lethargy, Denies malaise, Denies night sweats, Denies poor appetite, Denies sweats, Denies weakness, Denies weight gain, Denies weight loss Ears, nose, mouth and throat: Reports as per HPI Cardiovascular: Reports as per HPI, Denies chest pain, Denies claudication, Denies decreased exercise tolerance, Denies dyspnea on exertion, Denies edema, Denies high blood pressure, Denies irregular heart beat, Denies leg edema, Denies lightheadedness, Denies orthopnea, Denies palpitations, Denies paroxysmal nocturnal dyspnea, Denies phlebitis, Denies rapid heart beat, Denies shortness of breath, Denies syncope Respiratory: Reports as per HPI, Denies congestion, Denies cough, Denies cough w ith sputum, Denies dyspnea, Denies excessive sputum, Denies hemoptysis, Denies home oxygen, Denies pain, Denies pain on inspiration, Denies pleurisy, Denies respiratory infections, Denies sleep apnea, Denies snoring, Denies wheezing Gastrointestinal: Reports as per HPI, Denies abdominal pain, Denies belching, Denies bloating, Denies BRBPR, Denies change in bowel habits, Denies coffee ground emesis, Denies constipation, Denies diarrhea, Denies dyspepsia, Denies early satiety, Denies excessive gas, Denies heartburn, Denies hematemesis, Denies hematochezia, Denies indigestion, Denies jaundice, Denies lactose intolerance, Denies loss of appetite, Denies melena, Denies nausea, Denies vomiting Genitourinary: Reports as per HPI Musculoskeletal: Reports as per HPI, Denies arm numbness/tingling, Denies atrophy, Denies fractures, Denies frequent falls, Denies gait dysfunction, Denies hot joints, Denies leg numbness/tingling, Denies limitation of motion, Denies loss of height, Denies low back pain, Denies morning stiffness, Denies muscle cramps, Denies muscle weakness, Denies myalgias, Denies neck pain, Denies neck stiffness, Denies prior amputations, Denies redness of joints, Denies shooting arm pain, Denies shooting leg pain Neurological: Reports as per HPI, Reports change in mentation, Reports confusion Psychiatric: Reports as per HPI, Denies anhedonia, Denies anxiety, Denies anxiety attacks, Denies change in appetite, Denies change in libido, Denies change in sleep habits, Denies confusion, Denies depression, Denies difficulty concentrating, Denies disorientation, Denies hallucinations, Denies hopelessness, Denies hypersomnia, Denies insomnia, Denies irritability, Denies memory loss, Denies mood swings, Denies paranoia, Denies sadness/tearfulness, Denies sleep disturbances, Denies suicidal ideation Endocrine: Reports as per HPI Hematologic/Lymphatic: Reports as per HPI, Denies easy bleeding, Denies easy bruising, Denies lymphadenopathy, Denies lymphedema, Denies thrombophilia Allergic/Immunologic: Reports as per HPI, Denies allergic rhinitis, Denies anaphylaxis, Denies angioedema, Denies gluten intolerance, Denies persistent infections, Denies seasonal allergies, Denies urticaria, Denies wheezing Past Medical History Past Medical History: Hyperlipidemia, Hypertension, Osteoarthritis (OA), Prostate Disorder History of Any Multi-Drug Resistant Organisms: None Reported Past Surgical History: Orthopedic Surgery Additional Past Surgical History / Comment(s): Left carpal tunnel surgery, left shoulder surgery, left ankle open reduction and internal fixation greater than 53 years ago. Colonoscopy about 5 years ago. Past Anesthesia/Blood Transfusion Reactions: No Reported Reaction Past Psychological History: No Psychological Hx Reported Smoking Status: Former smoker Past Alcohol Use History: Occasional Past Drug Use History: None Reported - Past Family History Father Family Medical History: Cancer Mother Family Medical History: Vascular Disorder Additional Family Medical History / Comment(s): brain aneurysm. Brother(s) Family Medical History: Cancer Sister(s) Family Medical History: No Reported History Son(s) Family Medical History: No Reported History Daughter(s) Family Medical History: No Reported History Medications and Allergies Home Medications Medication Instructions Recorded Confirmed Type Hydrochlorothiazide 50 mg PO DAILY 02/16/20 02/16/20 History Mesalamine 4.8 gm PO DAILY 02/16/20 02/16/20 History predniSONE See Taper PO DAILY 02/16/20 02/16/20 History Allergies Allergy/AdvReac Type Severity Reaction Status Date / Time No Known Allergies Allergy Verified 02/16/20 10:14 Physical Exam Vitals: Vital Signs Temp Pulse Pulse Resp BP BP Pulse Ox 02/16/20 12:00 88 19 112/59 97 02/16/20 08:00 98.1 F 69 16 125/62 95 02/16/20 04:00 98.1 F 60 16 137/82 97 02/16/20 03:37 98.1 F 70 16 155/60 96 02/16/20 03:00 67 16 162/80 97 02/16/20 02:17 75 16 155/84 97 02/16/20 01:34 98.0 F 81 16 186/95 96 Intake and Output 02/15/20 02/16/20 02/16/20 22:59 06:59 14:59 Other: # Voids 1 Weight 68.2 kg - Constitutional General appearance: cooperative, no acute distress - EENT Eyes: anicteric sclerae, EOMI, PERRLA ENT: NA/AT, normal oropharynx - Neck Neck: normal ROM - Respiratory Respiratory: bilateral: CTA, negative: diminished, dullness, rales, rhonchi - Cardiovascular Rhythm: regular Heart sounds: normal: S1, S2 Abnormal Heart Sounds: no systolic murmur, no diastolic murmur, no rub, no S3 Gallop, no S4 Gallop, no click, no other - Gastrointestinal General gastrointestinal: hepatomegaly, normal bowel sounds, soft - Integumentary Integumentary: normal, normal turgor - Neurologic Neurologic: CNII-XII intact, focal deficits - Musculoskeletal Musculoskeletal: strength equal bilaterally - Psychiatric Psychiatric: A&O x's 3, appropriate affect, intact judgment & insight Results CBC & Chem 7: 02/16/20 01:43 02/16/20 01:43 Labs: Abnormal Lab Results - Last 24 Hours (Table) 02/16/20 02/16/20 02/16/20 Range/Units 01:42 01:43 01:43 APTT 21.0 L (22.0-30.0) sec Sodium 130 L (137-145) mmol/L Chloride 97 L (98-107) mmol/L Glucose 117 H (74-99) mg/dL POC Glucose (mg/dL) 114 H (75-99) mg/dL Plasma Lactic Acid Mikhail (0.7-2.0) mmol/L Creatine Kinase <20 L (55-170) U/L Troponin I (0.000-0.034) ng/mL 02/16/20 02/16/20 Range/Units 01:43 07:18 APTT (22.0-30.0) sec Sodium (137-145) mmol/L Chloride (98-107) mmol/L Glucose (74-99) mg/dL POC Glucose (mg/dL) (75-99) mg/dL Plasma Lactic Acid Mikhail 4.3 H* (0.7-2.0) mmol/L Creatine Kinase (55-170) U/L Troponin I 0.040 H* (0.000-0.034) ng/mL Laboratory Results WBC 9.5 k/uL (3.8-10.6) 02/16/20 01:43 RBC 5.30 m/uL (4.30-5.90) 02/16/20 01:43 Hgb 14.3 gm/dL (13.0-17.5) 02/16/20 01:43 Hct 45.5 % (39.0-53.0) 02/16/20 01:43 MCV 86.0 fL (80.0-100.0) 02/16/20 01:43 MCH 27.0 pg (25.0-35.0) 02/16/20 01:43 MCHC 31.4 g/dL (31.0-37.0) 02/16/20 01:43 RDW 14.7 % (11.5-15.5) 02/16/20 01:43 Plt Count 413 k/uL (150-450) 02/16/20 01:43 Neutrophils % 57 % 02/16/20 01:43 Lymphocytes % 36 % 02/16/20 01:43 Monocytes % 5 % 02/16/20 01:43 Eosinophils % 0 % 02/16/20 01:43 Basophils % 0 % 02/16/20 01:43 Neutrophils # 5.5 k/uL (1.3-7.7) 02/16/20 01:43 Lymphocytes # 3.4 k/uL (1.0-4.8) 02/16/20 01:43 Monocytes # 0.5 k/uL (0-1.0) 02/16/20 01:43 Eosinophils # 0.0 k/uL (0-0.7) 02/16/20 01:43 Basophils # 0.0 k/uL (0-0.2) 02/16/20 01:43 PT 10.7 sec (9.0-12.0) 02/16/20 01:43 INR 1.0 (<1.2) 02/16/20 01:43 APTT 21.0 sec (22.0-30.0) L 02/16/20 01:43 Sodium 130 mmol/L (137-145) L 02/16/20 01:43 Potassium 4.8 mmol/L (3.5-5.1) 02/16/20 01:43 Chloride 97 mmol/L (98-107) L 02/16/20 01:43 Carbon Dioxide 23 mmol/L (22-30) 02/16/20 01:43 Anion Gap 10 mmol/L 02/16/20 01:43 BUN 14 mg/dL (9-20) 02/16/20 01:43 Creatinine 0.85 mg/dL (0.66-1.25) 02/16/20 01:43 Est GFR (CKD-EPI)AfAm >90 (>60 ml/min/1.73 sqM) 02/16/20 01:43 Est GFR (CKD-EPI)NonAf 84 (>60 ml/min/1.73 sqM) 02/16/20 01:43 Glucose 117 mg/dL (74-99) H 02/16/20 01:43 POC Glucose (mg/dL) 114 mg/dL (75-99) H 02/16/20 01:42 POC Glu [employer] Susan Villagomez 02/16/20 01:42 Lactic Ac Sepsis Rflx Y 02/16/20 02:43 Plasma Lactic Acid Mikhail 0.9 mmol/L (0.7-2.0) 02/16/20 07:18 Calcium 9.1 mg/dL (8.4-10.2) 02/16/20 01:43 Phosphorus 3.1 mg/dL (2.5-4.5) 02/16/20 01:43 Magnesium 2.2 mg/dL (1.6-2.3) 02/16/20 01:43 Total Bilirubin 0.4 mg/dL (0.2-1.3) 02/16/20 01:43 AST 17 U/L (17-59) 02/16/20 01:43 ALT 20 U/L (4-49) 02/16/20 01:43 Alkaline Phosphatase 61 U/L (38-126) 02/16/20 01:43 Creatine Kinase <20 U/L (55-170) L 02/16/20 01:43 Troponin I 0.040 ng/mL (0.000-0.034) H* 02/16/20 07:18 Total Protein 6.8 g/dL (6.3-8.2) 02/16/20 01:43 Albumin 3.6 g/dL (3.5-5.0) 02/16/20 01:43 Urine Color Light Yellow 02/16/20 02:58 Urine Appearance Clear (Clear) 02/16/20 02:58 Urine pH 5.0 (5.0-8.0) 02/16/20 02:58 Ur Specific Van 1.006 (1.001-1.035) 02/16/20 02:58 Urine Protein Negative (Negative) 02/16/20 02:58 Urine Glucose (UA) Negative (Negative) 02/16/20 02:58 Urine Ketones Negative (Negative) 02/16/20 02:58 Urine Blood Negative (Negative) 02/16/20 02:58 Urine Nitrite Negative (Negative) 02/16/20 02:58 Urine Bilirubin Negative (Negative) 02/16/20 02:58 Urine Urobilinogen <2.0 mg/dL (<2.0) 02/16/20 02:58 Ur Leukocyte Esterase Negative (Negative) 02/16/20 02:58 Assessment and Plan Plan: 1. Delirium from prednisone very transient, against metabolic encephalopathy, against acting out of vivid dreams,, with CT angiography findings showing a left vertebral artery complete occlusion, and short segment stenosis left carotid bulb 70%, and left mid cerebral artery 2 mm saccular aneurysm, no neurology is provided over the weekend, possible TIAs contemplated on differential, consult with neurology which would be available Monday morning, doubt seizure episode without toxic encephalopathy. Neuro checks, consult with vascular surgery for the abnormal CT findings 2. 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 Ulcerative colitis exacerbation, on tapering prednisone started 1 week ago on a 60 mg dose initial sequence thereafter would come down to 55 x1wk, 50x 1wk , 45 x 1wk 40 mg x1wk. 25 mg x 1wk 30mg x1wk tehn 25 mg x1wk then 20 mg 1 week, 15 mg x 1wk 10 mg every day 1 week, dosed by GI as an outpatient no changes were made 4. Elevated troponin unknown significance, patient is chest pain-free during this episode, possibly related to demand ischemia, cardiology will be consulted, echocardiogram continue aspirin continue aspirin 5. BPH without FLO TS 6 Hyperlipidemia not on statin 7 possible COPD as per history no current symptomatology, does not follow up as an outpatient no maintenance medications prior to admission 8. CODE STATUS full, attempted to call the spouse Abbie, to obtain additional formation, unable to reach attempted twice gi dvt prophylaxis
[2020-02-16] MEDS: FAMOTIDINE 20 MG TAB PO SCH ×2 (16:03→19:50)
[2020-02-16] MEDS: BALSALAZIDE DISODIUM 750 MG CAPSULE PO SCH ×2 (16:03→21:46)
[2020-02-16] MEDS: predniSONE 50 MG TAB PO SCH (16:03)
[2020-02-16] MEDS: predniSONE 5 MG TAB PO SCH (16:03)
[2020-02-16] MEDS: ENOXAPARIN 40 MG/0.4 ML SYRINGE SQ SCH (16:05)
[2020-02-17 06:32] LABS: Basophils % (A) 0 %; Eosinophils % (A) 0 %; HCT 38.3 % (39.0-53.0); HGB 11.9 gm/dL (13.0-17.5); Lymphocytes # (A) 2.2 k/uL (1.0-4.8); Lymphocytes % (A) 38 %; MCH 26.7 pg (25.0-35.0); MCV 86.1 fL (80.0-100.0); Mean Platelet Volume 6.8; Monocytes # (A) 0.2 k/uL (0-1.0); Monocytes % (A) 4 %; Neutrophils # (A) 3.3 k/uL (1.3-7.7); Neutrophils % (A) 56 %; Platelet Count 314 k/uL (150-450); RBC 4.46 m/uL (4.30-5.90); RDW 14.9 % (11.5-15.5); WBC 5.9 k/uL (3.8-10.6)
[2020-02-17 06:42] LABS: ALT 17 U/L (4-49); AST 15 U/L (17-59); African American GFR (CKD) >90 (>60 ml/min/1.73 sqM); Albumin 2.4 g/dL (3.5-5.0); Alkaline Phosphatase 42 U/L (38-126); Anion Gap 5 mmol/L; Blood Urea Nitrogen 9 mg/dL (9-20); Calcium 8.1 mg/dL (8.4-10.2); Carbon Dioxide 25 mmol/L (22-30); Chloride 105 mmol/L (98-107); Cholesterol 143 mg/dL (<200); Glucose 115 mg/dL (74-99); HDL Cholesterol 35 mg/dL (40-60); LDL Cholesterol,Calculated 94 mg/dL (0-99); Non-African American GFR(CKD) 85 (>60 ml/min/1.73 sqM); Sodium 135 mmol/L (137-145); Total Bilirubin 0.3 mg/dL (0.2-1.3); Total Protein 5.2 g/dL (6.3-8.2); Triglycerides 70 mg/dL (<150)
[2020-02-17 07:47] LABS: T4, Free (Free Thyroxine) 1.19 ng/dL (0.78-2.19)
[2020-02-17] MEDS: FAMOTIDINE 20 MG TAB PO SCH ×2 (08:56→20:16)
[2020-02-17] MEDS: predniSONE 5 MG TAB PO SCH (08:57)
--- NOTE | 2020-02-17 08:57 | P.CRDCN ---
History of Present Illness Consult date: 02/17/20 Requesting physician: Leydi Lemon Reason for Consult (text): Elevated troponins Consult reason: sycope Chief complaint: Syncope History of present illness: This is a pleasant 79-year-old gentleman with documented history of mild hypertension, although he states he has not been taking his medication for that at home, he denies any history of diabetes, no hyperlipidemia, he does also carry recent diagnosis of colitis, and has been on prednisone for this as well as mesalamine. One week ago his prednisone dose was increased because of a blood in his stool. Patient also states that he's recently been doing a cleansing at home, for the past week where he is only eating fruits and vegetables and fish. Overall patient states he's been feeling well, he went to bed the night before his admission here, he states that his noticed him thrashing his arms around, and his eyes were rolled back in his head he was somewhat unresponsive. For this reason he came to the emergency room for further evaluation and treatment. His blood pressure on arrival here 186/95 with a heart rate in the 80s, 96% on room air. Afebrile. White blood cell count is normal, his hemoglobin on admission was 14.3, this morning 11.9, platelet count 314. Sodium 135, potassium 5.0, BUN 9, creatinine 0.8. Initial troponin on presentation here 0.016, subsequent troponins 0.04, 0.05. TSH level 0.39, free T4 1.1. CAT scan of the brain performed on arrival here did not re veal any acute intracranial abnormality. EKG shows a normal sinus rhythm with left anterior fascicular block. 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 Short segment of stenosis in the left carotid bulb nearing 70%. Carotid Doppler study was performed this morning, results are yet pending. Cardiology consultation was requested because of the possible syncope as well as abnormality in troponin. Past Medical History Past Medical History: Hyperlipidemia, Hypertension, Osteoarthritis (OA), Prostate Disorder History of Any Multi-Drug Resistant Organisms: None Reported Past Surgical History: Orthopedic Surgery Additional Past Surgical History / Comment(s): Left carpal tunnel surgery, left shoulder surgery, left ankle open reduction and internal fixation greater than 53 years ago. Colonoscopy about 5 years ago. Past Anesthesia/Blood Transfusion Reactions: No Reported Reaction Past Psychological History: No Psychological Hx Reported Smoking Status: Former smoker Past Alcohol Use History: Occasional Past Drug Use History: None Reported - Past Family History Father Family Medical History: Cancer Mother Family Medical History: Vascular Disorder Additional Family Medical History / Comment(s): brain aneurysm. Brother(s) Family Medical History: Cancer Sister(s) Family Medical History: No Reported History Son(s) Family Medical History: No Reported History Daughter(s) Family Medical History: No Reported History Medications and Allergies Home Medications Medication Instructions Recorded Confirmed Type Hydrochlorothiazide 50 mg PO DAILY 02/16/20 02/17/20 History Mesalamine 4.8 gm PO DAILY 02/16/20 02/17/20 History predniSONE See Taper PO DAILY 02/16/20 02/17/20 History Allergies Allergy/AdvReac Type Severity Reaction Status Date / Time No Known Allergies Allergy Verified 02/16/20 10:14 Physical Exam Vitals: Vital Signs Temp Pulse Resp BP BP Pulse Ox 02/17/20 04:00 75 16 117/74 96 02/16/20 23:30 68 16 113/57 96 02/16/20 19:58 97.6 F 68 16 110/67 97 02/16/20 16:00 98.1 F 67 19 140/67 98 02/16/20 12:00 88 19 112/59 97 Intake and Output 02/16/20 02/17/20 02/17/20 22:59 06:59 14:59 Intake Total 120 800 Balance 120 800 Intake: Intake, IV Titration 800 Amount Sodium Chloride 0.9% 1, 800 000 ml @ 100 mls/hr IV . [facility] Rx#:[id number] Oral 120 Other: # Voids 1 Weight 68 kg PHYSICAL EXAMINATION: GENERAL: 79-year-old gentleman in no acute distress at the time of my examination HEENT: Head is atraumatic, normocephalic. Pupils equal, round. Sclera anicteric. Conjunctiva are clear. Mucous membranes of the mouth are moist. Neck is supple. There is no elevated jugular venous pressure. No carotid bruit is heard. HEART EXAMINATION: Heart S1, S2 normal. No murmur or gallop heard. CHEST EXAMINATION: Lungs are clear to auscultation and precussion. No chest wall tenderness is noted on palpation or with deep breathing. ABDOMEN: Soft, nontender. Bowel sounds are heard. No organomegaly noted. EXTREMITIES: 2+ peripheral pulses with no evidence of peripheral edema and no calf tenderness noted. NEUROLOGIC patient is awake, alert and oriented 3 . Results 02/17/20 05:31 02/17/20 05:31 Cardiac Enzymes 02/16/20 02/17/20 Range/Units 12:45 05:31 AST 15 L (17-59) U/L Troponin I 0.051 H* (0.000-0.034) ng/mL Lipids 02/17/20 Range/Units 05:31 Triglycerides 70 (<150) mg/dL Cholesterol 143 (<200) mg/dL HDL Cholesterol 35 L (40-60) mg/dL CBC 02/17/20 Range/Units 05:31 WBC 5.9 (3.8-10.6) k/uL RBC 4.46 (4.30-5.90) m/uL Hgb 11.9 L (13.0-17.5) gm/dL Hct 38.3 L (39.0-53.0) % Plt Count 314 (150-450) k/uL Comprehensive Metabolic Panel 02/17/20 Range/Units 05:31 Sodium 135 L (137-145) mmol/L Potassium 5.0 (3.5-5.1) mmol/L Chloride 105 (98-107) mmol/L Carbon Dioxide 25 (22-30) mmol/L BUN 9 (9-20) mg/dL Creatinine 0.82 (0.66-1.25) mg/dL Glucose 115 H (74-99) mg/dL Calcium 8.1 L (8.4-10.2) mg/dL AST 15 L (17-59) U/L ALT 17 (4-49) U/L Alkaline Phosphatase 42 (38-126) U/L Total Protein 5.2 L (6.3-8.2) g/dL Albumin 2.4 L (3.5-5.0) g/dL Current Medications Generic Name Dose Route Start Last Admin Trade Name Freq PRN Reason Stop Dose Admin Aspirin 325 mg 02/17/20 09:00 Aspirin PO DAILY [facility] Balsalazide 2,250 mg 02/16/20 14:15 05/31/20 21:46 Colazal PO 2,250 mg TID [facility] Administration Enoxaparin Sodium 40 mg 02/16/20 14:00 02/16/20 16:05 Lovenox SQ Not Given Q24H [facility] Famotidine 20 mg 02/16/20 13:45 02/16/20 19:50 Pepcid PO Not Given BID [facility] Sodium Chloride 1,000 mls @ 100 mls/hr 02/16/20 03:00 02/16/20 21:47 Saline 0.9% IV 100 mls/hr .Q10H [facility] Administration Nitroglycerin 0.4 mg 02/16/20 02:53 Nitrostat SUBLINGUAL Q5M PRN Chest Pain Prednisone 50 mg 02/16/20 14:15 02/16/20 16:03 PO 50 mg DAILY [facility] Administration Prednisone 5 mg 02/16/20 14:30 02/16/20 16:03 PO 5 mg DAILY [facility] Administration Intake and Output 02/16/20 02/17/20 02/17/20 22:59 06:59 14:59 Intake Total 120 800 Balance 120 800 Intake: Intake, IV Titration 800 Amount Sodium Chloride 0.9% 1, 800 000 ml @ 100 mls/hr IV . Q10H [facility] Rx#:[id number] Oral 120 Other: # Voids 1 Weight 68 kg 02/17/20 05:31 02/17/20 05:31 EKG Interpretations (text) EKG shows a normal sinus rhythm with left anterior fascicular Assessment and Plan Plan: Assessment and plan #1 possible syncope, rule out possible seizures, possible TIA. Neurology is on consultation. CT angiography findings revealed left vertebral artery complete occlusion and a short segment of stenosis in the left carotid bulb of 70%. Patient had also been taking prednisone at home, dose increased approximately a week ago. #2 troponin abnormality, patient denies having any chest discomfort. EKG shows a normal sinus rhythm with left anterior fascicular block, no acute changes noted. 0.016, 0.040, 0.051. #3 mild hypertension, patient states he has not been taking his antihypertensive medications at home #4 hyperlipidemia, untreated #5 recent diagnosis of colitis, for which the patient was taking prednisone at home. Plan We will obtain an echocardiogram with Doppler study. We will also request a d- dimer be performed because of the questionable syncope with abnormal troponin. Further recommendations to follow. DNP note has been reviewed, I agree with a documented findings and plan of care. Patient was seen and examined.
[2020-02-17] MEDS: ASPIRIN 325 MG TAB PO SCH (08:58)
[2020-02-17] MEDS: SODIUM CHLORIDE 0.9% 1,000 ML IV SCH ×2 (08:59→20:16)
[2020-02-17] MEDS: BALSALAZIDE DISODIUM 750 MG CAPSULE PO SCH ×3 (08:59→20:20)
[2020-02-17] MEDS: predniSONE 50 MG TAB PO SCH (08:59)
--- NOTE | 2020-02-17 09:31 | US ---
EXAMINATION TYPE: US carotid duplex BILAT DATE OF EXAM: 02/17/2020 COMPARISON: CTA neck and head from yesterday. CLINICAL HISTORY: carotid stenosis. TIA. EXAM MEASUREMENTS: RIGHT: Peak Systolic Velocity (PSV) cm/sec ----- Right CCA: 90.4 ----- Right ICA: 96.3 ----- Right ECA: 98.3 ICA/CCA ratio: 1.1 RIGHT: End Diastole cm/sec ----- Right CCA: 19.5 ----- Right ICA: 19.5 ----- Right ECA: 5.7 LEFT: Peak Systolic Velocity (PSV) cm/sec ----- Left CCA: 94.3 ----- Left ICA: 102.2 ----- Left ECA: 112.0 ICA/CCA ratio: 1.1 LEFT: End Diastole cm/sec ----- Left CCA: 21.5 ----- Left ICA: 23.4 ----- Left ECA: 5.7 VERTEBRALS (direction of flow): Right Vertebral: Antegrade Left Vertebral: Unable to visualize Rhythm: Normal mild eccentric plaque left carotid bulb level corresponds to recent CTA neck. IMPRESSION: No hemodynamically significant stenosis in either internal carotid artery. Probable occ luded small caliber left vertebral artery based on CT correlation. Findings correlate with CT from on e day earlier. Criteria for Assigning % of Stenosis / Diameter reduction (Estimation based on the indirect measurements of the internal carotid artery velocities (ICA PSV). 1. Normal (no stenosis)=ICA PSV < 125 cm/s: ratio < 2.0: ICA EDV<40 cm/s. 2. Less than 50% stenosis=ICA PSV < 125 cm/s: ratio < 2.0: ICA EDV<40 cm/s. 3. 50 to 69% stenosis=ICA PSV of 125 to 230 cm/s: ration 2.0 ? 4.0: ICA EDV 40-100 cm/s. 4. Greater than 70% stenosis to near occlusion= ICA PSV > 230 cm/s: ratio > 4.0: ICA EDV > 100 cm/s. 5. Near occlusion= ICA PSV velocities may be low or undetectable: variable ratio and ICA EDV. 6. Total occlusion=unable to detect flow.
--- NOTE | 2020-02-17 12:16 | P.PN ---
Subjective Progress Note Date: 02/17/20 This is a 79-year-old male one of Dr. Mcdermott with a previous medical history significant for hypertension and hypertensive cardiovascular disease, hyperlipidemia, ulcerative colitis who was recently started on prednisone 7 days ago are using 60 mg oral prednisone with half a tablet tapering dose per week, also on on high EKG fiber diet for cleansing, and is on his feet 4. Patient was noticed by the to be delirious, we'll while he was sleeping, the got concerned as the patient is not making any sense, patient thereafter was admitted to the hospital for possible TIA, weakness, and syncope. Patient cannot relate to any syncopal episodes, patient was sleeping at this time, however he is making noises and reaching out in his sleep. Patient came in by ambulance, history comes from the patient. Patient denies any dysarthria or dysphagia motor deficits in upper extremity or lower extremity, no dizziness no diplopia, patient does not have any chest pain or palpitations no difficulty of breathing, and no dyspnea on exertion. No chest pain on exertion. Emergency room, CAT scan of the brain shows cerebral atrophy noted with no acute intracranial abnormality, EKG normal sinus rhythm with left anterior fascicular block troponin was 0.016 and 0.04, consult were made with cardiology, echocardiogram was requested, urinalysis is negative, lactic acid was elevated on admission, patient required fluid for hydration. Early this morning, patient was short of breath, IV Lasix was given for suspected volume overload, and was better on our rounds this morning. 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 Consult with cardiology was made as well as vascular surgery, neurology 02/16: The patient is seen today in follow-up. He has had no further episodes of syncope, no lightheadedness or dizziness, no chest pain or shortness of breath. Consults with vascular surgeon and neurology are pending. We will add an EEG to evaluate for possible seizure activity. Patient has been afebrile, heart rate 62, blood pressure 128/63, pulse ox 90% on room air. Repeat CBC reveals hemoglobin 11.9, sodium is 135. Troponins repeat have been 0.040 and 0.051. Triglycerides 70, cholesterol 143, LDL 94, HDL 35. TSH is 0.391 and free T4 is normal at 1.19. Coronavirus PCR is not detected. Carotid ultrasound reveals no hemodynamically significant stenosis. Patient has been seen by cardiology and d-dimer has been ordered. Objective - Vital Signs Vital signs: Vital Signs Temp 97.6 F 02/16/20 19:58 Pulse 75 02/17/20 04:00 Resp 16 02/17/20 04:00 BP 117/74 02/17/20 04:00 Pulse Ox 96 02/17/20 04:00 Intake & Output 02/16/20 02/17/20 02/17/20 18:59 06:59 18:59 Intake Total 120 800 Balance 120 800 Weight 68 kg Intake: Intake, IV Titration 800 Amount Sodium Chloride 0.9% 1, 800 000 ml @ 100 mls/hr IV . Q10H [facility]ERY Rx#:[id number] Oral 120 Other: # Voids 1 - Exam Review of Systems Constitutional: No fever, no chills, no night sweats. No weight change. No weakness, fatigue or lethargy. No daytime sleepiness. EENT: No headache. No blurred vision or double vision, no loss of vision. No loss of Hearing, no ringing in the ears, no dizziness. No nasal drainage or congestion. No epistaxis. No sore throat. Lungs: No shortness of breath, cough, no sputum production. No wheezing. Cardiovascular: No chest pain, no lower extremity edema. No palpitations. No paroxysmal nocturnal dyspnea. No orthopnea. No lightheadedness or dizziness. No syncopal episodes. Abdominal: No abdominal pain. No nausea, vomiting. No diarrhea. No constipation. No bloody or tarry stools.. No loss of appetite. Genitourinary: No dysuria, increased frequency, urgency. No urinary retention. Musculoskeletal: No myalgias. No muscle weakness, no gait dysfunction, no frequent falls. No back pain. No neck pain. Integumentary: No wounds, no lesions. No rash or pruritus. No unusual bruising. No change in hair or nails. Neurologic: No aphasia. No facial droop. No change in mentation. No head injury. No headache. No paralysis. No paresthesia. Psychiatric: No depression. No anxiety. No mood swings. Endocrine: No abnormal blood sugars. No weight change. No excessive sweating or thirst. No cold intolerance. Physical examination - Constitutional General appearance: cooperative, resting in bed, no acute distress - EENT Eyes: anicteric sclerae, EOMI, PERRLA ENT: NA/AT, normal oropharynx - Neck Neck: normal ROM - Respiratory Respiratory: bilateral: CTA, negative: diminished, dullness, rales, rhonchi - Cardiovascular Rhythm: regular Heart sounds: normal: S1, S2 Abnormal Heart Sounds: no systolic murmur, no diastolic murmur, no rub, no S3 Gallop, no S4 Gallop, no click, no other - Gastrointestinal General gastrointestinal: hepatomegaly, normal bowel sounds, soft - Integumentary Integumentary: normal, normal turgor - Neurologic Neurologic: CNII-XII intact, focal deficits - Musculoskeletal Musculoskeletal: strength equal bilaterally - Psychiatric Psychiatric: A&O x's 3, appropriate affect, intact judgment & insight - Labs CBC & Chem 7: 02/17/20 05:31 02/17/20 05:31 Labs: Abnormal Lab Results - Last 24 Hours (Table) 02/16/20 02/16/20 02/17/20 Range/Units 07:18 12:45 05:31 Hgb (13.0-17.5) gm/dL Hct (39.0-53.0) % Sodium 135 L (137-145) mmol/L Glucose 115 H (74-99) mg/dL Calcium 8.1 L (8.4-10.2) mg/dL AST 15 L (17-59) U/L Troponin I 0.040 H* 0.051 H* (0.000-0.034) ng/mL Total Protein 5.2 L (6.3-8.2) g/dL Albumin 2.4 L (3.5-5.0) g/dL HDL Cholesterol 35 L (40-60) mg/dL TSH 0.391 L (0.465-4.680) mIU/L 02/17/20 Range/Units 05:31 Hgb 11.9 L (13.0-17.5) gm/dL Hct 38.3 L (39.0-53.0) % Sodium (137-145) mmol/L Glucose (74-99) mg/dL Calcium (8.4-10.2) mg/dL AST (17-59) U/L Troponin I (0.000-0.034) ng/mL Total Protein (6.3-8.2) g/dL Albumin (3.5-5.0) g/dL HDL Cholesterol (40-60) mg/dL TSH (0.465-4.680) mIU/L Assessment and Plan Plan: 1. 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 Carotid ultrasound reveals no hemodynamically significant stenosis. Vascular surgery consult and neurology consult. EEG ordered to rule out seizure activity. 2. 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 Vascular surgery consult. 3. Syncopal episode, rule out seizure. Cardiology consult, neurology consult. Echocardiogram and EEG pending. 4. Elevated troponin unknown significance without chest pain. Cardiology consult appreciated. Echocardiogram report is pending. Continue full-strength aspirin. 5. Ulcerative colitis exacerbation, on tapering prednisone started 1 week ago on a 60 mg dose initial sequence thereafter would come down to 55 x1wk, 50x 1wk , 45 x 1wk 40 mg x1wk. 25 mg x 1wk 30mg x1wk tehn 25 mg x1wk then 20 mg 1 week, 15 mg x 1wk 10 mg every day 1 week, dosed by GI as an outpatient no changes were made 6. BPH. 7. Dyslipidemia not on statin 8. Possible COPD as per history no current symptomatology. 9. DVT prophylaxis. Lovenox. 10. GI prophylaxis. Pepcid. 11. COVID-19 infection not present. Discharge plan: Home Impression and plan of care have been directed as dictated by the signing physi cian. Jordyn Pak nurse practitioner acting as scribe for signing physician.
--- NOTE | 2020-02-17 12:46 | P.GSCN ---
History of Present Illness Consult date: 02/17/20 Reason for Consult: Carotid stenosis, left occlusion in vetebral artery History of present illness: Patient is a 79-year-old male with a past medical history of mild hypertension, in recent diagnosis of colitis which he is following with gastroenterology. The patient states 2 nights ago his ex- had noticed he was filling lifting his arms and talking in his sleep, when she awoke him his eyes were rolling and he continued to talk without making any sense. The patient states his then called 911. The patient does not remember the episode occurring or going in the ambulance to the hospital. The patient states he has been having some off and on visual changes such as blurriness in his eyes. Patient did have recent start of steroids and mesalamine for his colitis. The patient denies any upper or lower extremity weakness, no visual changes, memory loss, difficulty speaking, dizziness, or other neurological deficits. The patient denies any prior previous history of carotid stenosis, peripheral arterial disease, or coronary artery disease. Upon admission he had a CT of the brain without contrast was cerebral atrophy. With no acute intracranial abnormality. CT angiogram of the head and neck showed mild nonspecific arthrosclerosis and is not dynamically significant on the right common carotid artery. On the left there is a short segment of stenosis of the carotid bulb with stenosis that is just under 70%. Left vertebral artery is occluded from its origin to the palomino magnum with some flow within the distal left vertebral artery although there is to be negative caliber, flow is likely retrograde from the right patent vertebral artery. No proximal stenosis of the left subclavian artery seen. There is a 2 mm saccular aneurysm noted of the left M1 segment on image 24. Right posterior vertebral arteries, visualized however appears patent and 3-D reformats. Carotid ultrasound duplex completed grading right ICA 96.3 with a ratio of 1.1, left ICA 102.2 within ratio of 1.1, overall impression shows no hemodynamically significant stenosis in either internal carotid artery. Probable occluded small caliber left vertebral artery based on CT correlation. Findings correlate with CT from 1 day earlier. Review of Systems Review of systems completed and all pertinent positives and negatives as stated in the HPI. Past Medical History Past Medical History: Hyperlipidemia, Hypertension, Osteoarthritis (OA), Prostate Disorder History of Any Multi-Drug Resistant Organisms: None Reported Past Surgical History: Orthopedic Surgery Additional Past Surgical History / Comment(s): Left carpal tunnel surgery, left shoulder surgery, left ankle open reduction and internal fixation greater than 53 years ago. Colonoscopy about 5 years ago. Past Anesthesia/Blood Transfusion Reactions: No Reported Reaction Past Psychological History: No Psychological Hx Reported Smoking Status: Former smoker Past Alcohol Use History: Occasional Past Drug Use History: None Reported - Past Family History Father Family Medical History: Cancer Mother Family Medical History: Vascular Disorder Additional Family Medical History / Comment(s): brain aneurysm. Brother(s) Family Medical History: Cancer Sister(s) Family Medical History: No Reported History Son(s) Family Medical History: No Reported History Daughter(s) Family Medical History: No Reported History Medications and Allergies Home Medications Medication Instructions Recorded Confirmed Type Hydrochlorothiazide 50 mg PO DAILY 02/16/20 02/17/20 History Mesalamine 4.8 gm PO DAILY 02/16/20 02/17/20 History predniSONE See Taper PO DAILY 02/16/20 02/17/20 History Allergies Allergy/AdvReac Type Severity Reaction Status Date / Time No Known Allergies Allergy Verified 02/16/20 10:14 Surgical - Exam Vital Signs Temp Pulse Resp BP Pulse Ox 98.0 F 81 16 186/95 96 02/16/20 01:34 02/16/20 01:34 02/16/20 01:34 02/16/20 01:34 02/16/20 01:34 General appearance: The patient is alert, oriented, in no acute distress. HET: Head is normocephalic and atraumatic. Pupils are equal and reactive. Neck: Supple without lymphadenopathy. Trachea midline. No audible carotid bruits bilaterally Heart: S1 S2. Regular rate and rhythm. Lungs: No crackles or wheezes are heard. Abdomen: Soft, nontender, nondistended with bowel sounds. No peritoneal signs. No palpable organomegaly or masses. Extremities: Normal skin color and turgor. No cyanosis, rash, ulceration, clubbing, or edema. Radial and pedal pulses are 2/4 bilaterally. Neurological: No focal deficits. Strength and sensation are grossly intact. Results - Labs 02/17/20 05:31 02/17/20 05:31 Abnormal Lab Results - Last 24 Hours (Table) 02/16/20 02/17/20 02/17/20 Range/Units 12:45 05:31 05:31 Hgb 11.9 L (13.0-17.5) gm/dL Hct 38.3 L (39.0-53.0) % Sodium 135 L (137-145) mmol/L Glucose 115 H (74-99) mg/dL Calcium 8.1 L (8.4-10.2) mg/dL AST 15 L (17-59) U/L Troponin I 0.051 H* (0.000-0.034) ng/mL Total Protein 5.2 L (6.3-8.2) g/dL Albumin 2.4 L (3.5-5.0) g/dL HDL Cholesterol 35 L (40-60) mg/dL TSH 0.391 L (0.465-4.680) mIU/L Diabetes panel 02/17/20 Range/Units 05:31 Sodium 135 L (137-145) mmol/L Potassium 5.0 (3.5-5.1) mmol/L Chloride 105 (98-107) mmol/L Carbon Dioxide 25 (22-30) mmol/L BUN 9 (9-20) mg/dL Creatinine 0.82 (0.66-1.25) mg/dL Glucose 115 H (74-99) mg/dL Calcium 8.1 L (8.4-10.2) mg/dL AST 15 L (17-59) U/L ALT 17 (4-49) U/L Alkaline Phosphatase 42 (38-126) U/L Total Protein 5.2 L (6.3-8.2) g/dL Albumin 2.4 L (3.5-5.0) g/dL Triglycerides 70 (<150) mg/dL HDL Cholesterol 35 L (40-60) mg/dL Thyroid panel 02/17/20 Range/Units 05:31 TSH 0.391 L (0.465-4.680) mIU/L Calcium panel 02/17/20 Range/Units 05:31 Calcium 8.1 L (8.4-10.2) mg/dL Albumin 2.4 L (3.5-5.0) g/dL Pituitary panel 02/17/20 Range/Units 05:31 Sodium 135 L (137-145) mmol/L Potassium 5.0 (3.5-5.1) mmol/L Chloride 105 (98-107) mmol/L Carbon Dioxide 25 (22-30) mmol/L BUN 9 (9-20) mg/dL Creatinine 0.82 (0.66-1.25) mg/dL Glucose 115 H (74-99) mg/dL Calcium 8.1 L (8.4-10.2) mg/dL TSH 0.391 L (0.465-4.680) mIU/L Adrenal panel 02/17/20 Range/Units 05:31 Sodium 135 L (137-145) mmol/L Potassium 5.0 (3.5-5.1) mmol/L Chloride 105 (98-107) mmol/L Carbon Dioxide 25 (22-30) mmol/L BUN 9 (9-20) mg/dL Creatinine 0.82 (0.66-1.25) mg/dL Glucose 115 H (74-99) mg/dL Calcium 8.1 L (8.4-10.2) mg/dL Total Bilirubin 0.3 (0.2-1.3) mg/dL AST 15 L (17-59) U/L ALT 17 (4-49) U/L Alkaline Phosphatase 42 (38-126) U/L Total Protein 5.2 L (6.3-8.2) g/dL Albumin 2.4 L (3.5-5.0) g/dL Assessment and Plan Assessment: 1. Carotid stenosis, CT angiogram showing up to 70% left carotid stenosis, Carotid US showing minimal stenosis bilaterally 2. Mental status changes 3. Left vetebral occlusion 4. 2mm Sacullar anuerysm Plan: Dr. Fagan was able to discuss CT angiogram and carotid ultrasound findings with the patient's daughter over the phone, with the permission from the patient. There is no evidence of significant stenosis in bilateral internal carotid arteries. Recommend low-dose aspirin and statin therapy. Patient may be discharged from vascular surgery standpoint, with no further follow-up. Patient is awaiting neurology consult. Thank you for this consultation and allowing us to take part in the plan of care of this patient during his hospital stay. The above dictated assessment and findings were discussed with Dr. May. The impression and plan of care have been directed as dictated.
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
[2020-02-17] MEDS: ENOXAPARIN 40 MG/0.4 ML SYRINGE SQ SCH (15:50)
--- NOTE | 2020-02-17 16:00 | ECHOF ---
Referral Reason:tia, elev troponin MEASUREMENTS -------- HEIGHT: 182.9 cm WEIGHT: 67.6 kg BP: 117/74 IVSd: 1.5 cm (0.6 - 1.1) LVIDd: 2.6 cm (3.9 - 5.3) LVPWd: 1.9 cm (0.6 - 1.1) IVSs: 1.9 cm LVIDs: 1.8 cm LVPWs: 2.3 cm RVIDd: 3.9 cm (< 3.3) LAESV Index (A-L): 37.51 ml/m Ao Diam: 2.9 cm (2.0 - 3.7) AV Cusp: 1.4 cm (1.5 - 2.6) EPSS: 0.4 cm MV E Christiano: 0.74 m/s MV DecT: 244 ms MV A Christiano: 0.99 m/s MV E/A Ratio: 0.74 RAP: 5.00 mmHg RVSP: 39.32 mmHg MV EF SLOPE: 36.49 mm/s (70 - 150) MV EXCURSION: 18.81 mm (> 18.000) FINDINGS -------- Sinus rhythm. This was a technically adequate study. The left ventricular size is normal. There is moderate concentric left ventricular hypertrophy. O verall left ventricular systolic function is normal with, an EF between 55 - 60 %. The diastolic fi lling pattern is normal for the age of the patient 12.01. The right ventricle is moderately enlarged. LA is moderately dilated 34-39 ml/m2 The right atrial size is normal. Interatrial and interventricular septum intact. There is mild aortic valve sclerosis. Trace to mild aortic regurgitation. There is no evidence of aortic stenosis. Mild mitral annular calcification present. Moderate mitral regurgitation is present. Mild tricuspid regurgitation present. There is mild pulmonary hypertension. The right ventricular systolic pressure, as measured by Doppler, is 39.32mmHg. There is no pulmonic regurgitation present. The aortic root size is normal. Normal inferior vena cava with normal inspiratory collapse consistent with estimated right atrial pre ssure of 5 mmHg. There is no pericardial effusion. CONCLUSIONS -------- 1. Sinus rhythm. 2. This was a technically adequate study. 3. The left ventricular size is normal. 4. There is moderate concentric left ventricular hypertrophy. 5. Overall left ventricular systolic function is normal with, an EF between 55 - 60 %. 6. The diastolic filling pattern is normal for the age of the patient 12.01 7. The right ventricle is moderately enlarged. 8. LA is moderately dilated 34-39 ml/m2 9. The right atrial size is normal. 10. Interatrial and interventricular septum intact. 11. There is mild aortic valve sclerosis. 12. Trace to mild aortic regurgitation. 13. There is no evidence of aortic stenosis. 14. Mild mitral annular calcification present. 15. Moderate mitral regurgitation is present. 16. Mild tricuspid regurgitation present. 17. There is mild pulmonary hypertension. 18. The right ventricular systolic pressure, as measured by Doppler, is 39.32mmHg. 19. There is no pulmonic regurgitation present. 20. The aortic root size is normal. 21. Normal inferior vena cava with normal inspiratory collapse consistent with estimated right atrial pressure of 5 mmHg. 22. There is no pericardial effusion. INTEGRATION SOFTWARE DEVELOPER: Gris Arcos RDCS
--- NOTE | 2020-02-17 16:01 | EEG ---
ELECTROENCEPHALOGRAM REPORT DATE OF SERVICE: 02/17/2020. PREAMBLE: This is a 79-year-old male who had a seizure-type spell at night. This EEG is performed to evaluate for any epileptiform activity. EEG FINDINGS: This is a 21-channel routine EEG recording in a patient utilizing 10/20 international system with bipolar and referential montages. Background consists of well developed, well regulated, moderate voltage activity in 9 to 10 Hz alpha. Background is posterior- dominant and reactive to eye opening and closing. Photic driving response was seen with some flash frequencies. Drowsiness was seen with appearance of bilaterally symmetric theta frequency rhythm. Brief stage II sleep was seen with the presence of occasional vertex waves. There were two sharply contoured waves seen in the left temporal region, once several minutes before and once after photic stimulation. EKG channel showed no arrhythmia. IMPRESSION: This is a borderline abnormal EEG due to presence of two left temporal sharply contoured waves. Although these were not clearly epileptiform, they could be artifactual in nature as well. Clinical correlation is strongly recommended. Suggest prolonged, sleep-deprived EEG for better evaluation of any underlying epileptiform activity. MMODL / IJN: [id number] / MTDAnup
[2020-02-17] MEDS ORDERED: ATORVASTATIN 40 MG TAB PO SCH (21:00)
[2020-02-17] MEDS ORDERED: ATORVASTATIN 20 MG TAB PO SCH (21:00)
[2020-02-18] MEDS: SODIUM CHLORIDE 0.9% 1,000 ML IV SCH (06:46)
[2020-02-18] MEDS: BALSALAZIDE DISODIUM 750 MG CAPSULE PO SCH (08:21)
[2020-02-18] MEDS: FAMOTIDINE 20 MG TAB PO SCH (08:21)
[2020-02-18] MEDS: predniSONE 5 MG TAB PO SCH (08:21)
[2020-02-18] MEDS: ASPIRIN 325 MG TAB PO SCH (08:22)
[2020-02-18] MEDS: predniSONE 50 MG TAB PO SCH (08:22)
--- NOTE | 2020-02-18 10:32 | MR ---
EXAMINATION TYPE: MR brain wo/w con DATE OF EXAM: 02/18/2020 COMPARISON: 02/16/2020 HISTORY: Siezure like activity while sleeping TECHNIQUE: Multiplanar, multisequence images of the brain and brainstem is performed without and with IV contras t, utilizing 7 mL intravenous Gadavist . FINDINGS: On diffusion imaging axial 13 there is a small focus of abnormal signal the medial margin o f the right temporal lobe measuring 3 mm. There is no enhancement. No enhancing lesions are seen. Rep ort called to patient's nurse. There is moderate generalized degenerative change with numerous focal areas of abnormal signal seen s cattered throughout the white matter in a nonspecific pattern but most typical remote microvascular i schemia. There is a soft tissue nodule adjacent to the left frontal parietal calvarium within the sub cutaneous tissues may represent an epidermal skin lesion correlate with clinical exam. Craniocervical junction is maintained. Sella turcica has a normal appearance. The dural venous sinuse s enhance normally. Nasal septal deviation seen changes of mild chronic sinusitis. Orbital structures are symmetric IMPRESSION: 1. There is a 3 mm area of abnormal signal on diffusion imaging within the medial right temporal lobe . No enhancement. Therefore, tiny area of acute or subacute ischemia favored over neoplasm. Short-ter m follow-up could be obtained for resolution to confirm ischemia versus neoplasm. No significant mass effect. Report telephoned to the patient's nurse. 2. Degenerative and nonspecific white matter changes most typical of remote microvascular ischemia. 3. There is a 7 mm epidermal scalp lesion overlying the left frontal parietal junction correlate clin ically. Finding nonspecific
--- NOTE | 2020-02-18 11:13 | P.PN ---
Subjective Progress Note Date: 02/18/20 This is a pleasant 79-year-old gentleman with documented history of mild hypertension, although he states he has not been taking his medication for that at home, he denies any history of diabetes, no hyperlipidemia, he does also carry recent diagnosis of colitis, and has been on prednisone for this as well as mesalamine. One week ago his prednisone dose was increased because of a blood in his stool. Patient also states that he's recently been doing a cleansing at home, for the past week where he is only eating fruits and vegetables and fish. Overall patient states he's been feeling well, he went to bed the night before his admission here, he states that his noticed him thrashing his arms around, and his eyes were rolled back in his head he was somewhat unresponsive. For this reason he came to the emergency room for further evaluation and treatment. His blood pressure on arrival here 186/95 with a heart rate in the 80s, 96% on room air. Afebrile. White blood cell count is normal, his hemoglobin on admission was 14.3, this morning 11.9, platelet count 314. Sodium 135, potassium 5.0, BUN 9, creatinine 0.8. Initial troponin on presentation here 0.016, subsequent troponins 0.04, 0.05. TSH level 0.39, free T4 1.1. CAT scan of the brain performed on arrival here did not reveal any acute intracranial abnormality. EKG shows a normal sinus rhythm with left anterior fascicular block. 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 Short segment of stenosis in the left carotid bulb nearing 70%. Carotid Doppler study was performed this morning, results are yet pending. Cardiology consultation was requested because of the possible syncope as well as abnormality in troponin. 02/18/2020 patient was seen and examined this morning, denies any dizziness or lighthead edness, no episodes of syncope. No significant tachycardia or bradycardia noted on the monitor. Echocardiogram with Doppler study was performed which revealed a normal left ventricular systolic function, moderate mitral regurgitation. Patient did undergo an EGD and was evaluated by neurology who felt that the patient may have a nocturnal seizures. MRI of the brain was performed this morning which is yet pending. Blood pressure 122/68 with a heart rate in the 60s to 70s, 98% on room air. Objective - Vital Signs Vital signs: Vital Signs Temp 97.7 F 02/18/20 08:00 Pulse 67 02/18/20 08:00 Resp 16 02/18/20 08:00 BP 133/81 02/18/20 08:00 Pulse Ox 95 02/18/20 08:00 Intake & Output 02/17/20 02/18/20 02/18/20 18:59 06:59 18:59 Intake Total 240 240 Balance 240 240 Weight 69.7 kg Intake: Oral 240 240 Other: # Voids 3 2 - Exam PHYSICAL EXAMINATION: GENERAL: 79-year-old gentleman in no acute distress at the time of my examination HEENT: Head is atraumatic, normocephalic. Pupils equal, round. Sclera anicteric. Conjunctiva are clear. Mucous membranes of the mouth are moist. Neck is supple. There is no elevated jugular venous pressure. No carotid bruit is heard. HEART EXAMINATION: Heart S1, S2 normal. No murmur or gallop heard. CHEST EXAMINATION: Lungs are clear to auscultation and precussion. No chest wall tenderness is noted on palpation or with deep breathing. ABDOMEN: Soft, nontender. Bowel sounds are heard. No organomegaly noted. EXTREMITIES: 2+ peripheral pulses with no evidence of peripheral edema and no calf tenderness noted. NEUROLOGIC patient is awake, alert and oriented 3 - Labs CBC & Chem 7: 02/17/20 05:31 02/17/20 05:31 Assessment and Plan Plan: Assessment and plan #1 possible syncope, rule out possible seizures, possible TIA. Neurology is on consultation. CT angiography findings revealed left vertebral artery complete occlusion and a short segment of stenosis in the left carotid bulb of 70%. Patient had also been taking prednisone at home, dose increased approximately a week ago. #2 troponin abnormality, patient denies having any chest discomfort. EKG shows a normal sinus rhythm with left anterior fascicular block, no acute changes noted. 0.016, 0.040, 0.051. #3 mild hypertension, patient states he has not been taking his antihypertensive medications at home #4 hyperlipidemia, untreated #5 recent diagnosis of colitis, for which the patient was taking prednisone at home. Plan Echocardiogram with Doppler study was performed which revealed a normal left ventricular systolic function. No evidence of any tachycardia or bradycardia arrhythmias. From cardiology's perspective patient may be able to be discharged home from our perspective. DNP note has been reviewed, I agree with a documented findings and plan of care. Patient was seen and examined.
--- NOTE | 2020-02-18 12:04 | P.DS ---
Providers Date of admission: 02/16/20 02:54 Expected date of discharge: 02/18/20 Attending physician: Leydi Lemon Consults: 02/16/20 10:53 Consult Physician Routine Consulting Provider: Cherelle Sears Consult Reason/Comments: delirium/ tia possible syncopal episode Do you want consulting provider notified?: Yes 02/16/20 13:46 Consult Physician Routine Consulting Provider: Giuliano Fagan Consult Reason/Comments: carotid stenosis left, with occulsion left vertebral, sacullar aneurysmi Do you want consulting provider notified?: Yes 02/17/20 08:22 Consult Physician Routine Consulting Provider: Gabriel Daily Consult Reason/Comments: syncope Do you want consulting provider notified?: Already Contacted Primary care physician: Chichi Mcdermott MD Hospital Course: This is a 79-year-old male one of Dr. Mcdermott with a previous medical history significant for hypertension and hypertensive cardiovascular disease, hyperlipidemia, ulcerative colitis who was recently started on prednisone 7 days ago are using 60 mg oral prednisone with half a tablet tapering dose per week, also on on high EKG fiber diet for cleansing, and is on his feet 4. Patient was noticed by the to be delirious, we'll while he was sleeping, the got concerned as the patient is not making any sense, patient thereafter was admitte d to the hospital for possible TIA, weakness, and syncope. Patient cannot relate to any syncopal episodes, patient was sleeping at this time, however he is making noises and reaching out in his sleep. Patient came in by ambulance, history comes from the patient. Patient denies any dysarthria or dysphagia motor deficits in upper extremity or lower extremity, no dizziness no diplopia, patient does not have any chest pain or palpitations no difficulty of breathing, and no dyspnea on exertion. No chest pain on exertion. Emergency room, CAT scan of the brain shows cerebral atrophy noted with no acute intracranial abnormality, EKG normal sinus rhythm with left anterior fascicular block troponin was 0.016 and 0.04, consult were made with cardiology, echocardiogram was requested, urinalysis is negative, lactic acid was elevated on admission, patient required fluid for hydration. Early this morning, patient was short of breath, IV Lasix was given for suspected volume overload, and was better on our rounds this morning. 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 Consult with cardiology was made as well as vascular surgery, neurology 02/16: The patient is seen today in follow-up. He has had no further episodes of syncope, no lightheadedness or dizziness, no chest pain or shortness of breath. Consults with vascular surgeon and neurology are pending. We will add an EEG to evaluate for possible seizure activity. Patient has been afebrile, heart rate 62, blood pressure 128/63, pulse ox 90% on room air. Repeat CBC reveals hemoglobin 11.9, sodium is 135. Troponins repeat have been 0.040 and 0.051. Triglycerides 70, cholesterol 143, LDL 94, HDL 35. TSH is 0.391 and free T4 is normal at 1.19. Coronavirus PCR is not detected. Carotid ultrasound reveals no hemodynamically significant stenosis. Patient has been seen by cardiology and d-dimer has been ordered. 02/17: patient states that he is feeling fine. He states he has not had any symptoms. He denies any lightheadedness or dizziness. He has had no syncopal episodes and no seizure activity. EEG was borderline abnormal with presence of 2 episodes of left temporal sharply controlled waves. These were not clearly epileptiform could be artifact in nature. Clinical correlation is recommended. Echocardiogram reveals EF of 55-60%, moderate concentric left ventricular hypertrophy, mild aortic valve sclerosis, mild aortic regurgitation, moderate mitral regurgitation, mild tricuspid regurgitation, mild pulmonary hypertension. Patient has been cleared for discharge from cardiology. MRI of the brain revealed a 3 mm area of abnormal signal within the medial right temporal lobe. Tiny area of acute or subacute ischemia favored over neoplasm. Short-term follow-up could be obtained for resolution to confirm ischemia versus neoplasm. No significant mass effect. Degenerative and nonspecific white matter changes most typical remote microvascular ischemia. 7 mm epidural scalp lesion underlying the left frontal parietal junction. patient has been evaluated by vascular surgeon finding no evidence of significant stenosis in bilateral internal carotid arteries. Recommend low dose aspirin and statin therapy. Patient was cleared for discharge from vascular surgery standpoint and no further follow-up needed. Dr. Hartmann has recommended to continue aspirin 325 mg and Lipitor 20 mg daily. Plan to hold off on antiepileptic medication at this time, as this was patient's first event. He suggestedoutpatient follow-up with neurologist for prolonged EEG to rule out any underlying epileptiform tendency and follow-up with interventional neurology consultation as an outpatient for further evaluation of his possible aneurysm noted on the CTA. Neurology cleared patient for discharge. Patient will be discharged home today in stable condition. Discharge diagnoses: 1. Syncopal episode secondary to possible new onset nocturnal seizure, possible very small area of ischemic CVA on the medial right temporal lobe. exact cause is uncertain. 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 Minimal carotid stenosis bilaterally on carotid ultrasound despite CT angiogram showing 70% left carotid stenosis. 3. 2 mm Sacullar aneurysm. 4. Elevated troponin without acute coronary syndrome. 5. Ulcerative colitis exacerbation, on tapering prednisone 6. BPH. 7. Dyslipidemia 8. Possible COPD per history 9. COVID-19 infection not present. Discharge plan: Home Impression and plan of care have been directed as dictated by the signing physician. Jordyn Pak nurse practitioner acting as scribe for signing physician. Patient Condition at Discharge: Good Plan - Discharge Summary New Discharge Prescriptions: New Aspirin 325 mg PO DAILY tab Atorvastatin [Lipitor] 20 mg PO HS #30 tab Continue Mesalamine 4.8 gm PO DAILY predniSONE See Taper PO DAILY Changed Hydrochlorothiazide 25 mg PO DAILY #0 Discharge Medication List Mesalamine 4.8 gm PO DAILY 02/16/20 [History] predniSONE See Taper PO DAILY 02/16/20 [History] Aspirin 325 mg PO DAILY tab 02/18/20 [Rx] Atorvastatin [Lipitor] 20 mg PO HS #30 tab 02/18/20 [Rx] Hydrochlorothiazide 25 mg PO DAILY #0 02/18/20 [Rx] Follow up Appointment(s)/Referral(s): Chichi Mcdermott MD [Primary Care Provider] - 1 Week Ricky Arredondo DO [STAFF PHYSICIAN] - 1 Week (Possible new onset nocturnal seizure versus syncope. Prolonged, sleep deprived EEG for better evaluation of any underlying epileptiform activity) Discharge Disposition: HOME SELF-CARE
--- NOTE | 2020-02-18 12:39 | P.PN ---
Subjective Progress Note Date: 02/18/20 Patient offers no complaints. Back to normal. No further syncopal spells or seizures. Objective - Vital Signs Vital signs: Vital Signs Temp 97.7 F 02/18/20 08:00 Pulse 67 02/18/20 08:00 Resp 16 02/18/20 08:00 BP 133/81 02/18/20 08:00 Pulse Ox 95 02/18/20 08:00 Intake & Output 02/17/20 02/18/20 02/18/20 18:59 06:59 18:59 Intake Total 240 240 Balance 240 240 Weight 69.7 kg Intake: Oral 240 240 Other: # Voids 3 2 - Exam Essentially unchanged. - Labs CBC & Chem 7: 02/17/20 05:31 02/17/20 05:31 Labs: Abnormal Lab Results - Last 24 Hours (Table) 02/18/20 Range/Units 10:49 D-Dimer 0.90 H (<0.60) mg/L FEU Assessment and Plan Assessment: * 79-year-old male admitted with possible new onset nocturnal seizure versus syncope (while sleeping at night). Exact cause is uncertain. * Complete occlusion of left vertebral artery noted on CTA. 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 * Short segment stenosis of left carotid bulb 70% (On CTA), but was not seen on carotid Doppler. Plan: * EEG performed yesterday was borderline abnormal due to presence of 2 left temporal sharply contoured waves, which did not appear clearly epileptiform. Could be artifactual. Clinical correlation recommended. Suggest prolonged, sleep deprived EEG for better evaluation of any underlying epileptiform activity. * MRI of the brain revealed 3 millimeter area of abnormal signal on the diffusion imaging within the medial right temporal lobe. No enhancement. Favors ischemia over neoplasm. * Vascular surgery is on board for evaluation of ICA stenosis. Carotid Doppler showed no left ICA stenosis. * Patient's lipid panel showed cholesterol 143, LDL 94, HDL 35 and triglycerides 70. Recommend: Continue aspirin 325 mg and Lipitor 20 mg daily. Hold off on antiepileptic medication at this time, as this was first event. Suggest outpatient follow-up with neurologist for prolonged EEG to rule out any underlying epileptiform tendency. Suggest follow-up with Interventional neurology consultation as an outpatient for further evaluation of his possible aneurysm noted on the CTA. Case discussed in detail with patient's daughter, who is also a physician, and agreed with the management. Neurologically clear for discharge, if cleared by vascular surgery.
[2020-02-18 12:56] VITALS: RESP 14
[2020-02-18 13:06] VITALS: BP 120/80; PULSE 58; TEMP 98.6
== END 2020-02-18 14:31 | disposition home or self-care (01) | DRG 65 ==
LOC: EC 01:28 → 3SCARD 02:54
PROVIDERS: ADMIT Family Medicine; ATTEND Family Medicine
DX: I63.9 Cerebral infarction, unspecified (principal); K51.90 Ulcerative colitis, unspecified, without complications; G40.89 Other seizures; Z11.59 Encounter for screening for other viral diseases; I67.1 Cerebral aneurysm, nonruptured; I27.20 Pulmonary hypertension, unspecified; I11.9 Hypertensive heart disease without heart failure; E86.0 Dehydration; G31.9 Degenerative disease of nervous system, unspecified; J44.9 Chronic obstructive pulmonary disease, unspecified; T46.5X6A Underdosing of other antihypertensive drugs, initial encounter; I65.23 Occlusion and stenosis of bilateral carotid arteries; I65.02 Occlusion and stenosis of left vertebral artery; R29.700 NIHSS score 0; R40.2362 Coma scale, best motor response, obeys commands, at arrival to emergency department; R40.2142 Coma scale, eyes open, spontaneous, at arrival to emergency department; R40.2252 Coma scale, best verbal response, oriented, at arrival to emergency department; E78.5 Hyperlipidemia, unspecified; M19.90 Unspecified osteoarthritis, unspecified site; I44.4 Left anterior fascicular block; E87.70 Fluid overload, unspecified; R79.89 Other specified abnormal findings of blood chemistry; N40.0 Benign prostatic hyperplasia without lower urinary tract symptoms; R06.02 Shortness of breath; I08.3 Combined rheumatic disorders of mitral, aortic and tricuspid valves; Z91.14 Patient's other noncompliance with medication regimen; Z79.899 Other long term (current) drug therapy; Z98.890 Other specified postprocedural states; Z96.7 Presence of other bone and tendon implants; Z87.891 Personal history of nicotine dependence; Z80.1 Family history of malignant neoplasm of trachea, bronchus and lung; Z80.9 Family history of malignant neoplasm, unspecified; Z82.49 Family history of ischemic heart disease and other diseases of the circulatory system
CPT/HCPCS: 36415; 70450; 70496; 70498; 70553; 71046; 80053; 80061; 81003; 82550; 83605; 83735; 84100; 84439; 84443; 84484; 85025; 85379; 85610; 85730; 93005; 93306; 93880; 95816; 96360; 99285

== ENCOUNTER → 2020-04-20 | Outpatient (CLI) | payer MEDICARE ==
--- NOTE | 2020-05-27 12:18 | EM ---
This is a 30 day event monitor report. Baseline EKG showed sinus rhythm. Patient had several episodes of atrial tachycardia with a peak heart rate of up to 122. Occasional APCs were noted. The length of the SVT is about 3-5 seconds. Patient had several nonspecific symptoms, not correlating of any cardiac events. Final impression #1. Sinus rhythm and sinus tachycardia #2 APCs. #3 episodes of paroxysmal atrial tachycardia with the highest rate of about 120 to. The length of SVT is variable from couple of seconds to about 5-6 seconds. #4. Patient complained of nonspecific symptoms not correlating with any cardiac events. MTDD
== END | disposition home or self-care (01) ==
LOC: RADECHMAIN 12:30
PROVIDERS: ATTEND Psychiatry & Neurology Neurology
DX: I47.1 Supraventricular tachycardia (principal); I48.91 Unspecified atrial fibrillation; I63.9 Cerebral infarction, unspecified
CPT/HCPCS: 93270

== ENCOUNTER → 2022-01-10 | Outpatient (CLI) | payer MEDICARE ==
--- NOTE | 2022-01-10 22:02 | US ---
EXAMINATION TYPE: US kidneys/renal and bladder DATE OF EXAM: 01/10/2022 COMPARISON: NONE CLINICAL HISTORY: N40.0 ENLARGED PROSTATE. nocturia EXAM MEASUREMENTS: Right Kidney: 11.8 x 4.9 x 5.4 cm Left Kidney: 11.7 x 4.4 x 6.1 cm Post Void Residual Volume: 12 mL Right Kidney: No hydronephrosis or masses seen Left Kidney: No hydronephrosis or masses seen Bladder: No large mass. Bilateral Jets seen: no Normal Post Void Residual: yes There is no evidence for hydronephrosis at this point in time. No nephrolithiasis is seen. No omid s are identified. The urinary bladder is anechoic. Bilateral ureteral jets are seen. IMPRESSION: 1. No evidence of obstructive uropathy. 2. Median lobe hypertrophy of the prostate. Correlate with PSA. 3. Post void residual as above.
== END | disposition home or self-care (01) ==
LOC: RADUSWWP 15:23
PROVIDERS: ATTEND Internal Medicine
DX: N40.1 Benign prostatic hyperplasia with lower urinary tract symptoms (principal); R35.1 Nocturia
CPT/HCPCS: 76770

== ENCOUNTER → 2022-05-13 | Outpatient (CLI) | payer MEDICARE ==
--- NOTE | 2022-05-13 09:17 | MR ---
EXAMINATION TYPE: MR angio head wo/neck wo/w con DATE OF EXAM: 05/13/2022 COMPARISON: Carotid ultrasound February 17, 2020 HISTORY: New onset seizures, neoplasm, Hx of carotid stenosis/stroke TECHNIQUE: Time of flight images focusing on the [place] were performed without contrast.. 2-D and 3-D postprocessing imaging is performed on an independent workstation. MRA of the neck withou t and with contrast. Patient injected with 7.5 cc of gadavist for the study. FINDINGS: Dominant right vertebral artery fills the basilar artery. Small caliber but patent posterio r communicating arteries bilaterally. No significant focal stenosis or aneurysm in the posterior circ ulation. Small caliber but patent anterior communicating artery axial image 79. No significant focal stenosis or aneurysm in the anterior circulation. There is bovine type aortic arch which is normal variant. Left subclavian artery origin not included in field of view. There is normal origin of the right common carotid artery from the right brachiocep halic artery. There is no significant focal stenosis in the common or internal carotid arteries with particular attention at level of the bilateral carotid bulbs. There is hypoplastic or occluded left v ertebral artery along majority of its entire course. Small caliber patent distal left vertebral arter y is identified, there is suspected retrograde filling at this level. IMPRESSION: 1. No significant stenosis in common or internal carotid arteries bilaterally. Probable occluded or s tenotic left vertebral artery but note is made of dominant right vertebral artery filling the basilar artery. 2. No significant stenosis or aneurysm at the level of the lower [place].
--- NOTE | 2022-05-13 12:18 | MR ---
EXAMINATION TYPE: MR brain wo/w con DATE OF EXAM: 05/13/2022 COMPARISON: MRI brain 02/18/2020 HISTORY: New onset seizures, neoplasm, Hx of carotid stenosis/stroke TECHNIQUE: Multiplanar, multisequence images of the brain and brainstem is performed without and with IV contras t, utilizing 7.5 mL intravenous Gadavist . FINDINGS: Diffusion weighted images demonstrate no evidence of a recent infarct or other diffusion ab normality. There is no extra-axial fluid collection. Scattered white matter changes are seen through out the deep white matter most pronounced in the frontal lobes.. The ventricular system and cisternal spaces are normal in size and appearance. The brain volume is age appropriate. Bilateral Choroid pl exus xanthogranuloma. Midline structures demonstrate normal morphology. The craniocervical junction appears within normal limits. Post contrast images demonstrate no abnormal enhancement. The dural venous sinuses appear pa tent. The visualized sinuses are clear and the globes are intact. Unchanged left scalp lesion measuring up to 10 mm. IMPRESSION: 1. No evidence for acute/subacute CVA no abnormal enhancement. 2. Similar appearing Nonspecific white matter changes. 3. Unchanged left scalp lesion measuring up to 10 mm.
== END | disposition home or self-care (01) ==
LOC: RADMRIMAIN 07:32
PROVIDERS: ATTEND Psychiatry & Neurology Neurology
DX: R56.9 Unspecified convulsions (principal); D49.9 Neoplasm of unspecified behavior of unspecified site; I65.29 Occlusion and stenosis of unspecified carotid artery; I63.9 Cerebral infarction, unspecified
CPT/HCPCS: 70544; 70549; 70553; A9585

== ENCOUNTER → 2023-07-24 | Outpatient (CLI) | payer MEDICARE ==
--- NOTE | 2023-07-24 15:50 | US ---
EXAMINATION TYPE: US carotid duplex BILAT DATE OF EXAM: 07/24/2023 COMPARISON: NONE CLINICAL INDICATION: Male, 83 years old with history of I65.23 OCCLUSION STENOSIS; h/o seizure, no st roke, assess for occlusion TECHNIQUE: Carotid duplex ultrasound examination. Indirect Doppler criteria was utilized. FINDINGS: EXAM MEASUREMENTS: RIGHT: Peak Systolic Velocity (PSV) cm/sec ----- Right CCA: 74.6 ----- Right ICA: 56.9 ----- Right ECA: 115.0 ICA/CCA ratio: 0.8 RIGHT: End Diastole cm/sec ----- Right CCA: 10.9 ----- Right ICA: 14.2 ----- Right ECA: 6.7 LEFT: Peak Systolic Velocity (PSV) cm/sec ----- Left CCA: 121.0 ----- Left ICA: 89.9 ----- Left ECA: 181.0 ICA/CCA ratio: 0.7 LEFT: End Diastole cm/sec ----- Left CCA: 13.9 ----- Left ICA: 16.9 ----- Left ECA: 17.7 VERTEBRALS (direction of flow): Right Vertebral: Antegrade Left Vertebral: Antegrade Rhythm: Normal CLEAN IN PLACES OPERATOR NOTES: Mild homogeneous plaque, mild heterogeneous plaque with no significant stenosis IMPRESSION: Less than 50% stenosis of the bilateral carotid bifurcations. Criteria for Assigning % of Stenosis / Diameter reduction (Estimation based on the indirect measurements of the internal carotid artery velocities (ICA PSV). 1. Normal (no stenosis)=ICA PSV < 125 cm/s: ratio < 2.0: ICA EDV<40 cm/s. 2. Less than 50% stenosis=ICA PSV < 125 cm/s: ratio < 2.0: ICA EDV<40 cm/s. 3. 50 to 69% stenosis=ICA PSV of 125 to 230 cm/s: ration 2.0 ? 4.0: ICA EDV 40-100 cm/s. 4. Greater than 70% stenosis to near occlusion= ICA PSV > 230 cm/s: ratio > 4.0: ICA EDV > 100 cm/s. 5. Near occlusion= ICA PSV velocities may be low or undetectable: variable ratio and ICA EDV. 6. Total occlusion=unable to detect flow.
== END | disposition home or self-care (01) ==
LOC: RADUSWWP 14:49
PROVIDERS: ATTEND Psychiatry & Neurology Neurology
DX: I65.23 Occlusion and stenosis of bilateral carotid arteries (principal)
CPT/HCPCS: 93880

== ENCOUNTER → 2024-06-03 | Outpatient (CLI) | payer MEDICARE ==
--- NOTE | 2024-06-03 18:36 | CA ---
Transthoracic Echo Report Name: Nora Blank Age: 84 Gender: M : 1940 Exam Date: 06/03/2024 14:00 Exam Location: [facility] Ht (in): 71 Wt (lb): 173 Ordering Physician: Abdulkadir Marino MD Attending/Referring Phys: Abdulkadir Marino MD Wheel Loader Operator [facility]yn [facility] Procedure CPT: Indications: I65.23 OCCLUSION AND STENOSIS OF BILATERAL CAROTID Cardiac Hx: Technical Quality: Good Contrast 1: Total Dose (mL): Contrast 2: Total Dose (mL): MEASUREMENTS (Male / Female) Normal Values 2D ECHO LV Diastolic Diameter PLAX 4.7 cm 4.2 - 5.9 / 3.9 - 5.3 cm LV Systolic Diameter PLAX 3.1 cm IVS Diastolic Thickness 1.4 cm 0.6 - 1.0 / 0.6 - 0.9 cm LVPW Diastolic Thickness 1.5 cm 0.6 - 1.0 / 0.6 - 0.9 cm LV Relative Wall Thickness 0.6 RV Internal Dim ED PLAX 3.4 cm LA Systolic Diameter LX 4.5 cm 3.0 - 4.0 / 2.7 - 3.8 cm LV Diastolic Volume MOD 4C 106.4 cm??? LV Systolic Volume MOD 4C 43.4 cm??? LV Ejection Fraction MOD 4C 59.2 % LV Cardiac Index MOD 4C 1744.8 cm???/min???m??? LV Diastolic Length 4C 8.7 cm LV Systolic Length 4C 6.9 cm LV Diastolic Volume MOD 2C 100.4 cm??? LV Systolic Volume MOD 2C 39.9 cm??? LV Ejection Fraction MOD 2C 60.3 % LV Cardiac Index MOD 2C 1675.4 cm???/min???m??? LV Diastolic Length 2C 8.4 cm LV Systolic Length 2C 6.9 cm LA Volume 69.6 cm??? 18 - 58 / 22 - 52 cm??? LA Volume Index 35.0 cm???/m??? 16 - 28 cm???/m??? M-MODE Aortic Root Diameter MM 3.4 cm AV Cusp Separation MM 1.8 cm DOPPLER AV Peak Velocity 207.7 cm/s AV Peak Gradient 17.2 mmHg AV Mean Velocity 135.7 cm/s AV Mean Gradient 8.5 mmHg AV Velocity Time Integral 48.4 cm LVOT Peak Velocity 129.8 cm/s LVOT Peak Gradient 6.7 mmHg LVOT Velocity Time Integral 35.4 cm MV Area PHT 3.2 cm??? Mitral E Point Velocity 114.4 cm/s Mitral A Point Velocity 91.2 cm/s Mitral E to A Ratio 1.3 MV Deceleration Time 235.5 ms TR Peak Velocity 286.0 cm/s TR Peak Gradient 32.7 mmHg FINDINGS Left Ventricle Left ventricular ejection fraction is estimated at 55-60 %. Left ventricular cavity size normal. Moderate concentric left ventricular hypertrophy. Right Ventricle Mild right ventricular dilatation. Normal right ventricular global systolic function. Right Atrium Normal right atrial size. No spontaneous contrast in the right atrium. Left Atrium Mildly increased left atrial diameter. Moderately increased left atrial volume. Mildly increased left atrial area. No left atrial thrombus or mass present. Mitral Valve Mitral valve thickened. Trace to mild mitral regurgitation. No mitral stenosis. No evidence for mitral valve prolapse. Aortic Valve Trileaflet aortic valve. Thickened aortic valve mild aortic stenosis with a peak gradient of 17 mmHg and a mean gradient of 9 mmHg. Tricuspid Valve Structurally normal tricuspid valve. Mild tricuspid regurgitation. Pulmonic Valve Pulmonic valve not well visualized. No pulmonic regurgitation. Pericardium No pericardial or pleural effusion. Aorta Normal size aortic root and proximal ascending aorta. CONCLUSIONS Diagnosis; severe atherosclerotic disease, evaluate for CAD Preserved LV systolic function, moderate LVH Left atrial enlargement Aortic valve calcification with mild stenosis Previewed by: Dr. Man Lewis MD (Electronically Signed) Final Date: 03 June 2024 18:35
--- NOTE | 2024-06-06 14:46 | US ---
EXAMINATION TYPE: US carotid duplex BILAT DATE OF EXAM: 06/03/2024 COMPARISON: US 07/24/2023 CLINICAL INDICATION: Male, 84 years old with history of I65.23 OCCLUSION AND STENOSIS OF BILATERAL CA ROTID; Prior smoker, hypertension. TECHNIQUE: Carotid duplex ultrasound examination. Indirect Doppler criteria was utilized. FINDINGS: EXAM MEASUREMENTS: RIGHT: Peak Systolic Velocity (PSV) cm/sec ----- Right CCA: 90.3 ----- Right ICA: 68.7 ----- Right ECA: 122 ICA/CCA ratio: 0.76 RIGHT: End Diastole cm/sec ----- Right CCA: 16.0 ----- Right ICA: 9.97 ----- Right ECA: 11.6 LEFT: Peak Systolic Velocity (PSV) cm/sec ----- Left CCA: 94.4 ----- Left ICA: 100 ----- Left ECA: 168 ICA/CCA ratio: 1.06 LEFT: End Diastole cm/sec ----- Left CCA: 11.2 ----- Left ICA: 12.7 ----- Left ECA: 23.3 VERTEBRALS (direction of flow): Right Vertebral: Antegrade Left Vertebral: Unable to visualize Rhythm: Normal SIGN MAINTENANCE NOTES: Elevated velocity within left ECA and left proximal CCA. Plaque seen within bilate ral bulbs. Unable to visualize left vertebral artery. IMPRESSION: 1. Atheromatous plaquing without significant flow-limiting stenosis. Criteria for Assigning % of Stenosis / Diameter reduction (Estimation based on the indirect measurements of the internal carotid artery velocities (ICA PSV). 1. Normal (no stenosis)=ICA PSV < 125 cm/s: ratio < 2.0: ICA EDV<40 cm/s. 2. Less than 50% stenosis=ICA PSV < 125 cm/s: ratio < 2.0: ICA EDV<40 cm/s. 3. 50 to 69% stenosis=ICA PSV of 125 to 230 cm/s: ration 2.0 ? 4.0: ICA EDV 40-100 cm/s. 4. Greater than 70% stenosis to near occlusion= ICA PSV > 230 cm/s: ratio > 4.0: ICA EDV > 100 cm/s. 5. Near occlusion= ICA PSV velocities may be low or undetectable: variable ratio and ICA EDV. 6. Total occlusion=unable to detect flow. [facility], , 06/06/2024 2:44 PM
== END | disposition home or self-care (01) ==
LOC: RADECHMAIN 13:32
PROVIDERS: ATTEND Internal Medicine
DX: I65.23 Occlusion and stenosis of bilateral carotid arteries (principal); I25.10 Atherosclerotic heart disease of native coronary artery without angina pectoris; I70.90 Unspecified atherosclerosis; I11.9 Hypertensive heart disease without heart failure; Z87.891 Personal history of nicotine dependence
CPT/HCPCS: 93306; 93880

== ENCOUNTER → 2024-12-16 | Outpatient (CLI) | payer MEDICARE ==
--- NOTE | 2024-12-16 12:17 | MR ---
EXAMINATION TYPE: MR Prostate wo/w con DATE OF EXAM: 12/16/2024 COMPARISON: None. INDICATION: Elevated PSA PSA: 8.44 ng/ml on October 2024 Recent Biopsy and Date: None Pathology Report (If Applicable): TECHNIQUE: Examination was performed using a 3T MRI without an endorectal coil. Multiparametric imaging was perf ormed with T2 mutliplanar sequences, axial diffusion weighted imaging and dynamic contrast enhanced i maging, utilizing 7 mL intravenous Gadobutrol gadolinium contrast. FINDINGS: PROSTATE VOLUME: 4.9 cm SI x 3.9 cm AP x 5.9 cm LR Vol= 59.0 cc PSA DENSITY: 0.14 ng/ml/cc Enlarged prostate consistent with BPH is present. Site 1: There is large 3.6 cm circumscribed lesion of moderate hypointensity and T2 weighted images s howing diminished signal and ADC mapping and increased signal on diffusion-weighted images in the bas e extending inferiorly to the mid zone level and focal postcontrast enhancement. There is mass effect on the ureter which is deviated to right of midline. This extends to the inferior bladder wall. This has both medial and lateral involvement and is posterior in location. PI-RADS 5 lesion. Small to moderate-sized fat-containing left inguinal hernia. IMPRESSION: Enlarged prostate consistent with BPH. A focus of clinically significant cancer is suspected. Advised imaging guided targeted biopsy Highest Assessment Category: 5 MRI Stage: T0 N0 M0 based on review of pelvic images. False negative rates for MRI range from 5-20% depending on risk profile. Assessment Categories: 1 ? Very low (clinically significant cancer is highly unlikely to be present) 2 ? Low (clinically significant cancer is unlikely to be present) 3 ? Intermediate (the presence of clinically significant cancer is equivocal) 4 ? High (clinically significant cancer is likely to be present) 5 ? Very high (clinically significant cancer is highly likely to be present) [facility], , 12/16/2024 12:15 PM
== END | disposition home or self-care (01) ==
LOC: RADMRIMAIN 08:33
PROVIDERS: ATTEND Internal Medicine
DX: N40.0 Benign prostatic hyperplasia without lower urinary tract symptoms (principal); R97.20 Elevated prostate specific antigen [PSA]; K40.90 Unilateral inguinal hernia, without obstruction or gangrene, not specified as recurrent
CPT/HCPCS: 72197; A9585